=== PATIENT | female | born 2000 | race Hispanic/Latino ===

== ENCOUNTER 2022-05-02 01:54 | Emergency (ER) | payer OTHER ==
[~2022-05-02] VITALS: Ht 152.4 cm; Wt 56.7 kg
[2022-05-02 02:28] LABS: BASOPHILS % (AUTO) 0.5 % (0.0-5.0); EOSINOPHILS % (AUTO) 1.7 % (0.0-8.0); HEMATOCRIT 37.7 % (36-48); LYMPHOCYTES % (AUTO) 23.1 % (21.0-51.0); MEAN CORPUSCULAR HEMOGLOBIN 26.7 pg (27.0-33.0); MEAN CORPUSCULAR HGB CONC 32.9 g/dL (32.0-36.0); MEAN CORPUSCULAR VOLUME 81.3 fL (79-99); NEUTROPHILS % (AUTO) 68.3 % (40.0-77.0); PLATELET COUNT (AUTO) 248 K/uL (130-400); RED BLOOD CELL COUNT(AUTO) 4.64 MIL/uL (4.00-5.50); RED CELL DISTRIBUTION WIDTH 13.5 % (11.0-15.5)
[2022-05-02 03:35] LABS: APPEARANCE,URINE CLEAR (CLEAR); BILIRUBIN,URINE NEGATIVE (NEGATIVE); COLOR,URINE LIGHT-YELLOW (YELLOW); GLUCOSE, URINE (UA) NEGATIVE (NEGATIVE); KETONES,URINE 60 mg/dL (NEGATIVE); LEUKOCYTE ESTERASE ,URINE 250 Leu/uL (NEGATIVE); NITRATE,URINE NEGATIVE (NEGATIVE); OCCULT BLOOD,URINE LARGE (NEGATIVE); PH,URINE 6.5 (5.0-8.0); PROTEIN,URINE NEGATIVE (NEGATIVE); UROBILINOGEN,URINE 0.2 mg/dL (0.2-1.0)
[2022-05-02 03:54] LABS: MUCUS,URINE RARE LPF (None Seen); OTHER CASTS, URINE 1 /LPF (None Seen); SQUAMOUS EPITHELIAL CELL,UR RARE /HPF (0-2)
[2022-05-02] MEDS ORDERED: PREN1CAP37 PO (04:22)
[2022-05-02] MEDS ORDERED: CEPH500B PO (04:22)
[2022-05-02] MEDS ORDERED: CEPHALEXIN 500 MG CAPSULE PO ONE (04:30)
[2022-05-02 04:49] VITALS: BP 116/62
== END 2022-05-02 04:53 | disposition home or self-care (01) ==
LOC: EDH 01:54
DX: O20.0 Threatened abortion (principal); O23.11 Infections of bladder in pregnancy, first trimester; N30.00 Acute cystitis without hematuria; Z3A.08 8 weeks gestation of pregnancy
CPT/HCPCS: 36415; 76801; 81001; 84702; 85025; 86900; 86901; 87088

== ENCOUNTER 2022-05-02 21:31 | Emergency (ER) | payer OTHER ==
[~2022-05-02 21:31] MED LIST: CEPH500B PO; PREN1CAP37 PO
== END 2022-05-02 21:44 | disposition left against medical advice (07) ==
LOC: EDH 21:31
DX: O20.8 Other hemorrhage in early pregnancy (principal); Z3A.00 Weeks of gestation of pregnancy not specified; Z53.21 Procedure and treatment not carried out due to patient leaving prior to being seen by health care provider

== ENCOUNTER 2022-08-13 13:54 | Observation (INO) | payer MEDICAID, OTHER ==
[~2022-08-13] VITALS: Ht 157.5 cm; Wt 55.3 kg
[2022-08-13 14:11] VITALS: BP 135/82
[2022-08-13 14:42] LABS: APPEARANCE,URINE CLOUDY (CLEAR); BILIRUBIN,URINE NEGATIVE (NEGATIVE); COLOR,URINE YELLOW (YELLOW); GLUCOSE, URINE (UA) NEGATIVE (NEGATIVE); KETONES,URINE NEGATIVE (NEGATIVE); LEUKOCYTE ESTERASE ,URINE 500 Leu/uL (NEGATIVE); NITRATE,URINE NEGATIVE (NEGATIVE); OCCULT BLOOD,URINE NEGATIVE (NEGATIVE); PH,URINE 7.5 (5.0-8.0); PROTEIN,URINE 20 mg/dL (NEGATIVE); UROBILINOGEN,URINE 0.2 mg/dL (0.2-1.0)
[2022-08-13 14:48] LABS: AMPHET/METH SCREEN,URINE NEGATIVE (NEGATIVE); BARBITURATE SCREEN, URINE NEGATIVE (NEGATIVE); BENZODIAZEPINES SCREEN,URINE NEGATIVE (NEGATIVE); CANNABINOID SCREEN,URINE NEGATIVE (NEGATIVE); COCAINE SCREEN,URINE NEGATIVE (NEGATIVE); OPIATE SCREEN,URINE NEGATIVE (NEGATIVE); PHENCYCLIDINE SCREEN,URINE NEGATIVE (NEGATIVE)
[2022-08-13 14:59] LABS: BACTERIA,URINE FEW /HPF (None Seen); MUCUS,URINE RARE LPF (None Seen); OTHER CASTS, URINE 3 /LPF (None Seen); SQUAMOUS EPITHELIAL CELL,UR MOD /HPF (0-2); YEAST,URINE BUDDING MOD /HPF (None Seen)
== END 2022-08-13 15:43 | disposition home or self-care (01) ==
LOC: EDH 13:54 → LDH 13:55
PROVIDERS: ADMIT Internal Medicine; ATTEND Internal Medicine
DX: O26.892 Other specified pregnancy related conditions, second trimester (principal); R10.30 Lower abdominal pain, unspecified; Z3A.22 22 weeks gestation of pregnancy; Z79.899 Other long term (current) drug therapy
CPT/HCPCS: 59025; 80305; 87088; 81001; G0378; G0379

== ENCOUNTER 2023-11-08 12:54 | Inpatient (IN) | payer MEDICAID ==
[~2023-11-08] VITALS: Ht 157.5 cm; Wt 68.5 kg
[2023-11-08] MEDS ORDERED: LACTATED RINGERS 1000ML 1,000 ML IV SCH (13:30)
[2023-11-08 13:42] LABS: APPEARANCE,URINE CLEAR (CLEAR); BILIRUBIN,URINE NEGATIVE (NEGATIVE); COLOR,URINE LIGHT-YELLOW (YELLOW); GLUCOSE, URINE (UA) NEGATIVE (NEGATIVE); KETONES,URINE NEGATIVE (NEGATIVE); LEUKOCYTE ESTERASE ,URINE NEGATIVE Leu/uL (NEGATIVE); NITRATE,URINE NEGATIVE (NEGATIVE); OCCULT BLOOD,URINE NEGATIVE (NEGATIVE); PROTEIN,URINE NEGATIVE (NEGATIVE); UROBILINOGEN,URINE 0.2 mg/dL (0.2-1.0)
[2023-11-08 13:43] LABS: ADD UA MICROSCOPIC NO
[2023-11-08 13:43] LABS: HEMATOCRIT 32.7 % (36-48); MEAN CORPUSCULAR HEMOGLOBIN 22.9 pg (27.0-33.0); MEAN CORPUSCULAR HGB CONC 30.6 g/dL (32.0-36.0); MEAN CORPUSCULAR VOLUME 74.8 fL (79-99); PLATELET COUNT (AUTO) 236 K/uL (130-400); RED BLOOD CELL COUNT(AUTO) 4.37 MIL/uL (4.00-5.50); RED CELL DISTRIBUTION WIDTH 18.4 % (11.0-15.5); WHITE BLOOD COUNT (AUTO) 11.3 K/uL (4.8-10.8)
[2023-11-08] MEDS ORDERED: LACTATED RINGERS 1000ML 1,000 ML IV PRN (14:00)
[2023-11-08 14:25] LABS: HIV 1&2 ANTIBODY Non-Reactive (Negative); HIV-1 p24 Antigen Non-Reactive (Negative)
[2023-11-08] MEDS ORDERED: ROPIVACAINE 0.2% 2MG/ML 100ML VIAL EP SCH (14:30)
[2023-11-08] MEDS ORDERED: NALOXONE HCL 0.4 MG/1 ML ML IV PRN (14:30)
[2023-11-08] MEDS ORDERED: LACTATED RINGERS 500 ML 500 ML IV PRN (14:30)
[2023-11-08] MEDS ORDERED: EPHEDRINE SULFATE 50 MG/ML AMPULE IVP PRN (14:30)
[2023-11-08 14:40] LABS: AMPHET/METH SCREEN,URINE NEGATIVE (NEGATIVE); BARBITURATE SCREEN, URINE NEGATIVE (NEGATIVE); BENZODIAZEPINES SCREEN,URINE NEGATIVE (NEGATIVE); CANNABINOID SCREEN,URINE NEGATIVE (NEGATIVE); COCAINE SCREEN,URINE NEGATIVE (NEGATIVE); OPIATE SCREEN,URINE NEGATIVE (NEGATIVE); PHENCYCLIDINE SCREEN,URINE NEGATIVE (NEGATIVE)
[2023-11-08] MEDS: MEPERIDINE-PF 50 MG/ML SYG IVP PRN (14:48)
[2023-11-08] MEDS: PROMETHAZINE HCL 25 MG/ML 1ML AMPULE IM PRN (14:48)
[2023-11-08] MEDS ORDERED: LIDOCAINE HCL 1% 20 ML VIAL ONE (17:48)
[2023-11-08] MEDS: OXYTOCIN-LR 30 UNITS/500ML 500 ML IV SCH (18:24)
[2023-11-08] MEDS ORDERED: LANOLIN 30GM OINTMENT TP PRN (18:30)
[2023-11-08] MEDS ORDERED: ACETAMINOPHEN 325 MG TAB PO PRN (18:30)
[2023-11-08] MEDS ORDERED: ACETAMINOPHEN WITH CODEINE 1 TAB TAB PO PRN (18:30)
[2023-11-08 20:25] VITALS: BP 122/71; PULSE 77; RESP 18
[2023-11-08] MEDS: IBUPROFEN 600 MG TABLET PO PRN (20:41)
[2023-11-08] MEDS: DOCUSATE SODIUM 100 MG CAP PO SCH (20:42)
[2023-11-08] MEDS: BENZOCAINE/LANOLIN/ALOE VERA 60 ML AEROSOL TP PRN (20:42)
[2023-11-08] MEDS: WITCH HAZEL 1 PAD TP PRN (20:42)
[2023-11-08 23:56] VITALS: BP 128/74; PULSE 72; RESP 20
[2023-11-09 03:56] VITALS: BP 108/63; PULSE 66; RESP 18
[2023-11-09 06:46] LABS: HEMATOCRIT 27.9 % (36-48); MEAN CORPUSCULAR HEMOGLOBIN 22.5 pg (27.0-33.0); MEAN CORPUSCULAR HGB CONC 30.1 g/dL (32.0-36.0); MEAN CORPUSCULAR VOLUME 74.6 fL (79-99); RED BLOOD CELL COUNT(AUTO) 3.74 MIL/uL (4.00-5.50); RED CELL DISTRIBUTION WIDTH 18.3 % (11.0-15.5); WHITE BLOOD COUNT (AUTO) 10.8 K/uL (4.8-10.8)
[2023-11-09 07:13] VITALS: BP 95/47; PULSE 77; RESP 18
[2023-11-09 12:16] VITALS: BP 130/84; PULSE 79; RESP 18
[2023-11-09 13:43] LABS: RAPID PLASMA REAGIN NONREACTIVE (NONREACTIVE)
[2023-11-09] MEDS ORDERED: IBUP-2070 PO (14:42)
== END 2023-11-09 16:55 | disposition home or self-care (01) | DRG 560 ==
LOC: EDH 12:54 → OBSVTOIN 13:12 → LDH 13:12 → WSH 20:25
PROVIDERS: ADMIT Obstetrics & Gynecology; ATTEND Obstetrics & Gynecology
PROC: 10E0XZZ Delivery of Products of Conception, External Approach (ICD-10-PCS; principal; 2023-11-08)
PROC: 0KQM0ZZ Repair Perineum Muscle, Open Approach (ICD-10-PCS; 2023-11-08)
PROC: 10907ZC Drainage of Amniotic Fluid, Therapeutic from Products of Conception, Via Natural or Artificial Opening (ICD-10-PCS; 2023-11-08)
DX: O70.1 Second degree perineal laceration during delivery (principal); Z37.0 Single live birth; Z3A.39 39 weeks gestation of pregnancy
CPT/HCPCS: 36415; 80305; 81003; 85027; 86592; 86701; 86850; 86900; 86901; 87340; 87390; A4351; G0378; J2175; J2550; J2795

== ENCOUNTER 2024-09-15 19:38 | Emergency (ER) | payer MEDICAID ==
[~2024-09-15] VITALS: Ht 160 cm; Wt 68.0 kg
[~2024-09-15 19:38] MED LIST changes: -CEPH500B PO; +IBUP-2070 PO
--- NOTE | 2024-09-15 19:56 | ERN ---
ED Note History of Present Illness Stated Complaint: SEVERE UPPER STOMACH PAIN/ABDOMEN Chief Complaint: Abdominal Pain Time Seen by MD: 19:40 Time Seen by Midlevel: 19:40 Dictation: The patient is a 24-year-old female with a past medical history who presents to the emergency department with complaints of epigastric abdominal pain associated with nausea onset prior to arrival. Patient reports she has been having these episodes for about two days on and off. Reports pain as burning sensation. Denies any fevers, diarrhea. Reports last bowel movement today. Allergies: Coded Allergies: No Known Drug Allergies (Unverified Allergy, Unknown, 05/02/22) Home Meds Active Scripts 93/Iron/Folate 9/Dha (Westgel Dha Softgel) 1 Each Capsule, 1 EACH PO DAILY, #30 CAP 0 Refills Prov:RYANN WALLIS MD 05/02/22 Reported Medications Ibuprofen (Ibuprofen) 600 Mg Tablet, 600 MG PO Q6H PRN for PAIN, TAB 11/09/23 Past Medical History Past Medical History: No Pertinent History Surgical History: None LMP: Sep 11, 2024 : 2 Para: 1 Aborts: 0 RN Note Reviewed/Agreed w/PFSH: Yes Review of System Dictation Constitutional: Negative for fever,chills, and weight loss Eyes: Negative for injury, pain,redness, and discharge ENT: Negative for injury,pain or swelling Cardiovascular: Negative for chest pain, palpitations, and edema Respiratory: Negative for shortness of breath, cough, and wheezing, Abdomen/GI: Negative for vomiting, diarrhea, and constipation positive for abdominal pain, nausea Back: Negative for injury and pain : Negative for injury, bleeding and discharge MS/Extremity: Negative for injury and deformity Skin: Negative for rash, and discoloration Neuro: Negative for headache, weakness, numbness, tingling, and seizure Psych: Negative for suicide ideation, homicidal ideation, and hallucinations Initial Vital Sign VS Vital Signs Date Time Temp Pulse Resp B/P (MAP) Pulse Ox O2 Delivery O2 Flow Rate FiO2 09/15/24 19:46 98.4 105 18 137/79 98 Room Air 0 09/15/24 20:03 21 Physical Exam Dictation Vital Signs reviewed General Appearance: Alert, oriented x 3, no acute distress, well developed, nourished. Head and Face: non-traumatic. Eyes: PERRL, pink conjunctivas, eyelid no trauma, anterior chamber with arcus senilis. Ears: Pinnas intact and no signs of trauma or erythema ear canals clear and no discharge TM no erythema Nose: No discharge, no bleeding. Oropharynx: Mouth normal, tongue pink. pharynx clear,no erythema, tonsils no exudates, no abscesses noted, mucous membrane moist Neck: Supple, non-tender, no thyromegaly, no masses, no JVD, no bruits Breast:Deferred Chest:No tenderness, no crepitus, no paradoxical movement, no retractions Lungs:Clear, well-ventilated, symmetric, no rales, no wheezing, no rhonchi, no stridor, good breath sounds bilaterally Heart: Regular rate, regular rhythm, no murmur, no gallops Vascular: no peripheral edema, Abdomen: Soft, positive bowel sounds, nondistended, no guarding, nontender, no rebound, no masses no hepatomegaly, no splenomegaly, no Vogt's sign, no hernias. Rectal: Deferred Genital: Deferred Neurological: Normal speech, motor function intact, sensory function intact Musculoskeletal: Neck nontender, full range of motion, back nontender, full range of motion, Extremities: nontender, full range of motion Skin: Color pink, dry, no turgor, no rash, no lacerations, no abrasions, no contusions. Lymphatic: Deferred Results (Laboratory/Radiology) Laboratory/Radiology Laboratory Tests Test 09/15/24 19:49 09/15/24 19:59 Urine Color COLORLESS (YELLOW) Urine Appearance CLEAR (CLEAR) Urine pH 7.0 (5.0-8.0) Urine Specific [place] 1.021 (1.001-1.031) Urine Protein NEGATIVE mg/dL (NEGATIVE) Urine Glucose (UA) NEGATIVE mg/dL (NEGATIVE) Urine Ketones NEGATIVE mg/dL (NEGATIVE) Urine Occult Blood SMALL (NEGATIVE) H Urine Nitrate NEGATIVE (NEGATIVE) Urine Bilirubin NEGATIVE mg/dL (NEGATIVE) Urine Urobilinogen 0.2 mg/dL (0.2-1.0) Urine Leukocyte Esterase NEGATIVE [place]cedez/uL Urine RBC 2-5 /HPF (0-1) H Urine WBC 2-5 /HPF (0-1) H Urine Squamous Epithelial Cells MOD /HPF (0-2) Urine Bacteria None /HPF (None Seen) Urine HCG, Qualitative NEGATIVE (NEGATIVE) White Blood Count 8.7 K/uL (4.8-10.8) Red Blood Count 5.00 MIL/uL (4.00-5.50) Hemoglobin 13.4 g/dL (12.0-16.0) Hematocrit 41.7 % (36-48) Mean Corpuscular Volume 83.4 fL (79-99) Mean Corpuscular Hemoglobin 26.8 pg (27.0-33.0) L Mean Corpuscular Hemoglobin Concent 32.1 g/dL (32.0-36.0) Red Cell Distribution Width 13.6 % (11.0-15.5) Platelet Count 268 K/uL (130-400) Mean Platelet Volume 12.1 fL (7.5-10.5) H Immature Granulocyte % (Auto) 0.3 % (0-1) Neutrophils (%) (Auto) 61.2 % (40.0-77.0) Lymphocytes (%) (Auto) 30.9 % (21.0-51.0) Monocytes (%) (Auto) 5.0 % (3.0-13.0) Eosinophils (%) (Auto) 1.7 % (0.0-8.0) Basophils (%) (Auto) 0.9 % (0.0-5.0) Neutrophils # (Auto) 5.3 K/uL (1.8-7.7) Lymphocytes # (Auto) 2.7 K/uL (1.0-4.8) Monocytes # (Auto) 0.4 K/uL (0.1-1.0) Eosinophils # (Auto) 0.15 K/uL (0.00-0.70) Basophils # (Auto) 0.08 K/uL (0.00-0.20) Absolute Immature Granulocyte (auto 0.03 K/uL (0-1) Nucleated Red Blood Cells 0.0 % (0.0-0.19) Sodium Level 139 mmol/L (136-145) Potassium Level 3.9 mmol/L (3.5-5.1) Chloride Level 105 mmol/L (101-111) Carbon Dioxide Level 24 mmol/L (21-32) Blood Urea Nitrogen 24 mg/dL (7-18) H Creatinine 0.9 mg/dL (0.5-1.0) Glomerular Filtration Rate Calc 92 mL/min (>90) Random Glucose 126 mg/dL (70-105) H Total Calcium 8.7 mg/dL (8.5-10.1) Total Bilirubin 0.4 mg/dL (0.2-1.0) Aspartate Amino Transf (AST/SGOT) 14 U/L (10-37) Alanine Aminotransferase (ALT/SGPT) 21 U/L (12-78) Alkaline Phosphatase 93 U/L (50-136) Total Protein 7.5 g/dL (6.0-8.3) Albumin 4.2 g/dL (3.5-5.0) Amylase Level 33 U/L (25-115) Lipase 63 U/L (16-77) Labs Reviewed?: Yes ED Course ED Course Orders Procedure Category Date Status Time Vital Signs Per CPOE 09/15/24 Transmitted Routine 19:45 Saline Lock Iv CPOE 09/15/24 Transmitted 19:45 Cbc With Differential LAB 09/15/24 Complete 19:45 Comprehensive LAB 09/15/24 Complete Metabolic Panel 19:45 Lipase LAB 09/15/24 Complete 19:45 Amylase LAB 09/15/24 Complete 19:45 Urinalysis Profile LAB 09/15/24 Complete 19:45 ,Urine Test LAB 09/15/24 Complete 19:45 0.9%Nacl 1000ml (Ns PHA 09/15/24 Complete 1000ml) 20:00 Morphine 2mg Syg PHA 09/15/24 Complete (Morphine 2mg Syg) 20:00 Ondansetron 4mg Inj PHA 09/15/24 Complete (Zofran 4mg Inj) 20:00 Pantoprazole 40mg Inj PHA 09/15/24 Complete (Protonix 40mg Inj 20:00 Current Medications Medications (Trade) Dose Ordered Sig/Nathan Route PRN Reason Start Time Stop Time Status Last Admin Dose Admin Morphine Sulfate (morPHINE 2MG SYG) 2 mg ONCE ONCE IVP 09/15/24 20:00 09/15/24 20:01 DC Ondansetron HCl (zoFRAN 4MG INJ) 4 mg ONCE ONCE IVP 09/15/24 20:00 09/15/24 20:01 DC 09/15/24 20:14 Pantoprazole Sodium (PROTonix 40MG INJ) 40 mg ONCE ONCE IVP 09/15/24 20:00 09/15/24 20:01 DC 09/15/24 20:14 Sodium Chloride 1,000 ml @ 0 mls/hr ONCE ONCE IV 09/15/24 20:00 09/15/24 20:01 DC 09/15/24 20:13 Vital Signs Date Time Temp Pulse Resp B/P (MAP) Pulse Ox O2 Delivery O2 Flow Rate FiO2 09/15/24 20:27 98.2 77 17 128/70 100 Room Air* 0 21 09/15/24 20:03 98.2 113 22 138/71 100 Room Air* 0 21 09/15/24 19:46 98.4 105 18 137/79 98 Room Air 0 Medical Decision Making MDM The patient is a 24-year-old female with a past medical history who presents to the emergency department with complaints of epigastric abdominal pain associated with nausea onset prior to arrival. Patient reports she has been having these episodes for about two days on and off. Reports pain as burning sensation. Denies any fevers, diarrhea. Reports last bowel movement today. CBC showed no leukocytosis, no anemia, chemistry showed no electrolyte imbalance, negative lipase, normal liver enzymes, urinalysis unremarkable patient reported complete relief of abdominal pain after medication treatment. Patient with no tenderness to palpation, no right upper quadrant tenderness, negative Vogt sign. Patient in no acute distress, patient will be discharged to follow up with PCP. Differential diagnosis: Gastritis, gastroenteritis, pancreatitis, electrolyte imbalance Need for hospitalization: Patient does not meet criteria for hospitalization. There are no social concerns with this patient. DX & DISP Disposition: Discharge Departure Impression: Primary Impression: Gastritis Additional Impression: Abdominal pain Condition: Stable Scripts Famotidine (Pepcid) 20 Mg Tablet 1 TAB PO BID for 30 Days, #60 TAB 0 Refills Prov: GAVIN HOOKS WELDING TECHNICIAN 09/15/24 Additional Instructions: Your labs were unremarkable. Please avoid any foods that exacerbate your symptoms. Avoid laying flat right after eating. Take medication as prescribed. If symptoms worsen please return to ER. FOLLOW-UP WITH PRIMARY CARE PROVIDER IN 1 TO 2 DAYS. TAKE MEDICATIONS DIRECTED HERE IN THE EMERGENCY ROOM. OKAY TO CONTINUE HOME MEDICATIONS UNLESS OTHERWISE DISCUSSED DURING YOUR VISIT IN THE EMERGENCY ROOM TODAY. RETURN TO YOUR NEAREST EMERGENCY ROOM IF SYMPTOMS WORSEN OR IF THERE IS NO IMPROVEMENT. CALL 911 IF YOU NEED IMMEDIATE ASSISTANCE. TAKE TYLENOL OR MOTRIN [id number] NEEDED AND IF NO CONTRAINDICATIONS ARE PRESENT. INCREASE ORAL HYDRATION. A WOUND CULTURE OR URINE CULTURE WAS ORDERED HERE IN THE EMERGENCY ROOM DEPARTMENT PLEASE FOLLOW-UP WITH PRIMARY CARE PROVIDER AND ADVISE THEM TO GET REPEAT PORTS FROM OUR FACILITY. IF YOU HAD ANY ELLIE WRAP/SPLINTS THAT WERE APPLIED HERE, PLEASE DO NOT REMOVE THEM UNTIL YOU SEE YOUR PRIMARY CARE OR SPECIALTY. Referrals: YULIA ZAPIEN MD (PCP) Time of Disposition: 20:44 I have reviewed the case, and I agree with, Diagnosis and Plan GAVIN HOOKS [facility] Sep 15, 2024 19:56
--- NOTE | 2024-09-15 20:00 | NUR ---
PT CARE ASSUMED AT THIS TIME
[2024-09-15 20:09] LABS: BASOPHILS # (AUTO) 0.08 K/uL (0.00-0.20); BASOPHILS % (AUTO) 0.9 % (0.0-5.0); EOSINOPHILS # (AUTO) 0.15 K/uL (0.00-0.70); EOSINOPHILS % (AUTO) 1.7 % (0.0-8.0); HEMATOCRIT 41.7 % (36-48); IMMATURE GRANULOCYTE ABSOLUTE 0.03 K/uL (0-1); LYMPHOCYTES # (AUTO) 2.7 K/uL (1.0-4.8); LYMPHOCYTES % (AUTO) 30.9 % (21.0-51.0); MEAN CORPUSCULAR HEMOGLOBIN 26.8 pg (27.0-33.0); MEAN CORPUSCULAR HGB CONC 32.1 g/dL (32.0-36.0); MEAN CORPUSCULAR VOLUME 83.4 fL (79-99); MONOCYTES # (AUTO) 0.4 K/uL (0.1-1.0); NEUTROPHILS # (AUTO) 5.3 K/uL (1.8-7.7); NEUTROPHILS % (AUTO) 61.2 % (40.0-77.0); PLATELET COUNT (AUTO) 268 K/uL (130-400); RED CELL DISTRIBUTION WIDTH 13.6 % (11.0-15.5); WHITE BLOOD COUNT (AUTO) 8.7 K/uL (4.8-10.8)
[2024-09-15] MEDS: 0.9%NACL 1000ML 1,000 ML IV ONE (20:13)
[2024-09-15 20:14] LABS: APPEARANCE,URINE CLEAR (CLEAR); BILIRUBIN,URINE NEGATIVE (NEGATIVE); COLOR,URINE COLORLESS (YELLOW); GLUCOSE, URINE (UA) NEGATIVE (NEGATIVE); KETONES,URINE NEGATIVE (NEGATIVE); LEUKOCYTE ESTERASE ,URINE NEGATIVE Leu/uL (NEGATIVE); NITRATE,URINE NEGATIVE (NEGATIVE); OCCULT BLOOD,URINE SMALL (NEGATIVE); PROTEIN,URINE NEGATIVE (NEGATIVE); UROBILINOGEN,URINE 0.2 mg/dL (0.2-1.0)
[2024-09-15] MEDS: ondanSETRON 4MG INJ IVP ONE (20:14)
[2024-09-15] MEDS: PANTOPrazole 40 MG/VIAL IVP ONE (20:14)
[2024-09-15 20:17] LABS: ADD UA MICROSCOPIC YES
[2024-09-15 20:21] LABS: CREATININE 0.9 mg/dL (0.5-1.0); POTASSIUM 3.9 mmol/L (3.5-5.1)
[2024-09-15 20:22] LABS: HCG,QUALITATIVE URINE NEGATIVE (NEGATIVE)
[2024-09-15 20:24] LABS: MUCUS,URINE RARE LPF (None Seen); SQUAMOUS EPITHELIAL CELL,UR MOD /HPF (0-2)
[2024-09-15 20:25] LABS: ALBUMIN 4.2 g/dL (3.5-5.0); BILIRUBIN,TOTAL 0.4 mg/dL (0.2-1.0); TOTAL PROTEIN, SERUM 7.5 g/dL (6.0-8.3)
[2024-09-15] MEDS ORDERED: FAMO-136 PO (20:46)
[2024-09-15] MEDS: morPHINE 2 MG SYG IVP ONE (21:02)
[2024-09-15 21:17] VITALS: BP 126/69; PULSE 80; RESP 16; TEMP 98; O2SAT 100
== END 2024-09-15 21:18 | disposition home or self-care (01) ==
LOC: EDH 19:38
DX: K29.70 Gastritis, unspecified, without bleeding (principal); R10.13 Epigastric pain; Z79.899 Other long term (current) drug therapy
CPT/HCPCS: 99285; 96374; 96361; 96375; 82150; 80053; 83690; 85025; 81001; 81025; 36415; J7030; J2405; J2470; J2270

== ENCOUNTER 2024-09-17 20:53 | Emergency (ER) | payer MEDICAID ==
[~2024-09-17] VITALS: Ht 160 cm; Wt 68.0 kg
[~2024-09-17 20:53] MED LIST changes: +FAMO-136 PO
[2024-09-17] MEDS: MAG/ALUM/SIMETH 30 ML UDCUP PO ONE (22:36)
[2024-09-17] MEDS: DICYCLOMINE HCL 10 MG/5 ML ML PO ONE (22:36)
[2024-09-17] MEDS: LIDOCAINE HCL 2% VISCOUS 15 ML UDCUP PO ONE (22:36)
[2024-09-17] MEDS: ondanSETRON 4MG INJ IVP ONE (22:36)
[2024-09-17] MEDS: LACTATED RINGERS 1000ML IV STA (23:26)
[2024-09-17] MEDS: PANTOPrazole 40 MG/VIAL IVP ONE (23:27)
--- NOTE | 2024-09-17 23:59 | NUR ---
PT STILL PENDING LABS AND TEST RESULTS
[2024-09-18 00:06] LABS: BASOPHILS # (AUTO) 0.05 K/uL (0.00-0.20); BASOPHILS % (AUTO) 0.6 % (0.0-5.0); EOSINOPHILS # (AUTO) 0.04 K/uL (0.00-0.70); EOSINOPHILS % (AUTO) 0.5 % (0.0-8.0); HEMATOCRIT 37.5 % (36-48); IMMATURE GRANULOCYTE ABSOLUTE 0.04 K/uL (0-1); LYMPHOCYTES # (AUTO) 1.3 K/uL (1.0-4.8); LYMPHOCYTES % (AUTO) 16.2 % (21.0-51.0); MEAN CORPUSCULAR HEMOGLOBIN 26.9 pg (27.0-33.0); MEAN CORPUSCULAR HGB CONC 32.5 g/dL (32.0-36.0); MEAN CORPUSCULAR VOLUME 82.8 fL (79-99); MONOCYTES # (AUTO) 0.5 K/uL (0.1-1.0); MONOCYTES % (AUTO) 5.6 % (3.0-13.0); NEUTROPHILS # (AUTO) 6.3 K/uL (1.8-7.7); NEUTROPHILS % (AUTO) 76.6 % (40.0-77.0); PLATELET COUNT (AUTO) 244 K/uL (130-400); RED BLOOD CELL COUNT(AUTO) 4.53 MIL/uL (4.00-5.50); RED CELL DISTRIBUTION WIDTH 13.7 % (11.0-15.5); WHITE BLOOD COUNT (AUTO) 8.2 K/uL (4.8-10.8)
[2024-09-18 00:37] LABS: APPEARANCE,URINE CLEAR (CLEAR); BILIRUBIN,URINE NEGATIVE (NEGATIVE); COLOR,URINE YELLOW (YELLOW); GLUCOSE, URINE (UA) NEGATIVE (NEGATIVE); KETONES,URINE 40 mg/dL (NEGATIVE); LEUKOCYTE ESTERASE ,URINE NEGATIVE Leu/uL (NEGATIVE); NITRATE,URINE NEGATIVE (NEGATIVE); OCCULT BLOOD,URINE NEGATIVE (NEGATIVE); PROTEIN,URINE NEGATIVE (NEGATIVE)
[2024-09-18 00:51] LABS: ADD UA MICROSCOPIC YES
[2024-09-18 00:52] LABS: BACTERIA,URINE FEW /HPF (None Seen); MUCUS,URINE RARE LPF (None Seen); RBC,URINE 0-1 /HPF (0-1); SQUAMOUS EPITHELIAL CELL,UR RARE /HPF (0-2)
[2024-09-18 00:54] LABS: HCG,QUALITATIVE URINE NEGATIVE (NEGATIVE)
[2024-09-18 01:16] LABS: CREATININE 0.8 mg/dL (0.5-1.0); POTASSIUM 3.6 mmol/L (3.5-5.1)
--- NOTE | 2024-09-18 01:19 | ERN ---
General Chief Complaint: Abdominal Pain Stated Complaint: EPIGASTRIC PAIN Time Seen by MD: 20:57 Source: patient History of Present Illness Initial Comments Patient states that whenever she eats she immediately feels like she needs to defecate and then after that she lately gets a burning pain in her subxiphoid region. She has tried Zantac and it has not helped. Today she tried Pepto- Bismol it did not help. She comes in to figure out the cause of her pain. Timing/Duration: 24 hours Allergies: Coded Allergies: No Known Drug Allergies (Unverified Allergy, Unknown, 05/02/22) Home Meds Active Scripts Famotidine (Pepcid) 20 Mg Tablet, 1 TAB PO BID for 30 Days, #60 TAB 0 Refills Prov:GAVIN HOOKS PATIENT MANAGER 09/15/24 93/Iron/Folate 9/Dha (Westgel Dha Softgel) 1 Each Capsule, 1 EACH PO DAILY, #30 CAP 0 Refills Prov:RYANN WALLIS MD 05/02/22 Reported Medications Ibuprofen (Ibuprofen) 600 Mg Tablet, 600 MG PO Q6H PRN for PAIN, TAB 11/09/23 Past Medical History Past Medical History: Other Medical History Other: GASTRITIS Past Surgical History: None Female( History) LMP: Sep 11, 2024 : 2 Para: 1 Aborts: 0 Constitutional: (-) chills, (-) diaphoresis, (-) fever, (-) malaise, (-) weakness, (-) other documentation EENTM: (-) eye pain, (-) blurred vision, (-) tearing, (-) double vision, (-) ear pain, (-) ear discharge, (-) nose pain, (-) nose congestion, (-) throat pain, (-) Throat swelling, (-) mouth pain, (-) tooth pain, (-) mouth swelling, (-) other documentation Respiratory: (-) cough, (-) orthopnea, (-) short of breath, (-) stridor, (-) wheezing, (-) other documentation Cardiovascular: (-) chest pain, (-) edema, (-) palpitations, (-) syncope, (-) dyspnea on exertion, (-) other documentation Gastrointestinal/Abdominal: (-) nausea, (-) vomiting, (-) diarrhea, (-) abdominal pain, (-) abdominal distention, (-) constipation, (-) rectal bleeding, (-) dark stool/melena, (-) other documentation Genitourinary: (-) vaginal discharge, (-) vaginal bleeding, (-) dysuria, (-) frequency, (-) hematuria, (-) pain, (-) other documentation Physical Exam General Appearance: (+) mild distress Orientation: (+) alert, (+) oriented x 3 Eye: bilateral eye normal inspection, bilateral eye PERRL, bilateral eye EOMI Ear, Nose, Throat: (+) hearing grossly normal, (+) normal ENT inspection Neck: (+) normal inspection, (+) supple Respiratory: (+) chest non-tender, (+) lungs clear Heart: (+) regular, (+) no gallop Vascular: (+) no edema Gastrointestinal: (+) soft, (+) non-tender, (+) bowel sound present Results Laboratory and Microbiology Lab and Micro Result Laboratory Tests Test 09/17/24 23:44 09/18/24 00:30 09/18/24 01:04 White Blood Count 8.2 K/uL (4.8-10.8) Red Blood Count 4.53 MIL/uL (4.00-5.50) Hemoglobin 12.2 g/dL (12.0-16.0) Hematocrit 37.5 % (36-48) Mean Corpuscular Volume 82.8 fL (79-99) Mean Corpuscular Hemoglobin 26.9 pg (27.0-33.0) L Mean Corpuscular Hemoglobin Concent 32.5 g/dL (32.0-36.0) Red Cell Distribution Width 13.7 % (11.0-15.5) Platelet Count 244 K/uL (130-400) Mean Platelet Volume 13.0 fL (7.5-10.5) H Immature Granulocyte % (Auto) 0.5 % (0-1) Neutrophils (%) (Auto) 76.6 % (40.0-77.0) Lymphocytes (%) (Auto) 16.2 % (21.0-51.0) L Monocytes (%) (Auto) 5.6 % (3.0-13.0) Eosinophils (%) (Auto) 0.5 % (0.0-8.0) Basophils (%) (Auto) 0.6 % (0.0-5.0) Neutrophils # (Auto) 6.3 K/uL (1.8-7.7) Lymphocytes # (Auto) 1.3 K/uL (1.0-4.8) Monocytes # (Auto) 0.5 K/uL (0.1-1.0) Eosinophils # (Auto) 0.04 K/uL (0.00-0.70) Basophils # (Auto) 0.05 K/uL (0.00-0.20) Absolute Immature Granulocyte (auto 0.04 K/uL (0-1) Nucleated Red Blood Cells 0.0 % (0.0-0.19) Urine Color YELLOW (YELLOW) Urine Appearance CLEAR (CLEAR) Urine pH 7.0 (5.0-8.0) Urine Specific [place] 1.012 (1.001-1.031) Urine Protein NEGATIVE mg/dL (NEGATIVE) Urine Glucose (UA) NEGATIVE mg/dL (NEGATIVE) Urine Ketones 40 mg/dL (NEGATIVE) H Urine Occult Blood NEGATIVE (NEGATIVE) Urine Nitrate NEGATIVE (NEGATIVE) Urine Bilirubin NEGATIVE mg/dL (NEGATIVE) Urine Urobilinogen 4.0 mg/dL (0.2-1.0) H Urine Leukocyte Esterase NEGATIVE [place]cedez/uL Urine RBC 0-1 /HPF (0-1) Urine WBC 2-5 /HPF (0-1) H Urine Squamous Epithelial Cells RARE /HPF (0-2) Urine Bacteria FEW /HPF (None Seen) Urine HCG, Qualitative NEGATIVE (NEGATIVE) Sodium Level 139 mmol/L (136-145) Potassium Level 3.6 mmol/L (3.5-5.1) Chloride Level 108 mmol/L (101-111) Carbon Dioxide Level 25 mmol/L (21-32) Blood Urea Nitrogen 15 mg/dL (7-18) Creatinine 0.8 mg/dL (0.5-1.0) Glomerular Filtration Rate Calc 105 mL/min (>90) Random Glucose 93 mg/dL (70-105) Total Calcium 8.8 mg/dL (8.5-10.1) MDM Patient has a history of gastritis and was given medications for it proximally two days ago. With the pain is recalcitrant to the effects of the antacids. I gave her a GI cocktail and that did not relieve the pain so I am ordered a full set of labs and a CT abdomen pelvis with and without contrast. The description of the patient's pain as burning after defecating after eating could be a hiatal hernia. Patient said that she did get some relief with the medicine in the IV fluids. I can not tell if it was the IV pantoprazole or the fluids. Patient's CT scan does not really show a hiatal hernia. Or evidence of gastritis. CBC is normal chemistry panel is normal urine is normal. I think the patient has gastritis maybe a H pylori infection. I counseled her on the various antacid medications that are out there and that the proton pump inhibitors are probably the most effective. CT scan does not show a hiatal hernia unfortunately. ED Course Orders Procedure Category Date Status Time Ondansetron 4mg Inj PHA 09/17/24 Complete (Zofran 4mg Inj) 22:00 Lidocaine Hcl 2% PHA 09/17/24 Complete Viscous (Lidocaine Hcl 22:00 Mag/Alum/Simeth 30ml PHA 09/17/24 Complete (Maalox Plus 30ml) 22:00 Dicyclomine Hcl PHA 09/17/24 Complete (Bentyl 10mg/5ml 22:00 Basic Metabolic Panel LAB 09/17/24 Complete 23:02 Urinalysis Profile LAB 09/17/24 Complete 23:02 Cbc With Differential LAB 09/17/24 Complete 23:02 ,Urine Test LAB 09/17/24 Complete 23:02 Lactated Ringers PHA 09/17/24 Complete 1000ml (Lactated 23:07 Pantoprazole 40mg Inj PHA 09/17/24 Complete (Protonix 40mg Inj 23:30 Iohexol (Omnipaque) PHA 09/18/24 Complete 01:27 Ct Abdomen/Pelvis CT 09/18/24 Taken W/Wo Contras 01:35 Current Medications Medications (Trade) Dose Ordered Sig/Nathan Route PRN Reason Start Time Stop Time Status Last Admin Dose Admin Al Hydroxide/Mg Hydroxide (MAALox PLUS 30ML) 30 ml ONCE ONCE PO 09/17/24 22:00 09/17/24 22:01 DC 09/17/24 22:36 Dicyclomine HCl (Bentyl 10mg/5ml Syrup) 10 mg ONCE ONCE PO 09/17/24 22:00 09/17/24 22:01 DC 09/17/24 22:36 Iohexol (Omnipaque) 75 ml STK-MED ONCE IV 09/18/24 01:27 09/18/24 01:28 DC Lactated Ringer's (Lactated Ringers 1000ml) 1,000 ml BOLUS STAT IV 09/17/24 23:07 09/17/24 23:12 DC 09/17/24 23:26 Lidocaine HCl (Lidocaine HCl 2% Viscous) 10 ml ONCE ONCE PO 09/17/24 22:00 09/17/24 22:01 DC 09/17/24 22:36 Ondansetron HCl (zoFRAN 4MG INJ) 4 mg ONCE ONCE IVP 09/17/24 22:00 09/17/24 22:01 DC 09/17/24 22:36 Pantoprazole Sodium (PROTonix 40MG INJ) 40 mg ONCE ONCE IVP 09/17/24 23:30 09/17/24 23:31 DC 09/17/24 23:27 Vital Signs Date Time Temp Pulse Resp B/P (MAP) Pulse Ox O2 Delivery O2 Flow Rate FiO2 09/18/24 01:37 99 19 129/69 99 Room Air* 0 21 09/17/24 23:04 98.6 99 19 137/75 99 Room Air* 0 21 09/17/24 20:55 97.9 98 18 138/71 99 Room Air 0 DX & DISP Disposition: Discharge Departure Impression: Primary Impression: Gastritis Condition: Stable Additional Instructions: You may have an extremely small hiatal hernia or you may have an H pylori infection. You certainly have symptoms of a gastritis from acid production. I recommend you go to your primary care physician and be tested for Helicobacter pylori back to her infection. I will give you a prescription for some proton pump inhibitors that we will be stronger than the medicines you have taken so far to relieve your gastritis. You may need to see a GI specialist. Referrals: SELF,REFERRAL (PCP) ZACK STUBBS MD Sep 18, 2024 01:19
[2024-09-18] MEDS ORDERED: IOHEXOL-350 75 ML VIAL IV ONE (01:27)
[2024-09-18] MEDS ORDERED: PANT40GR PO (02:21)
[2024-09-18 02:27] VITALS: BP 131/72; PULSE 97; RESP 18; TEMP 98.3; O2SAT 99
--- NOTE | 2024-09-18 08:14 | HMCIMG ---
Exam Type: CT ABDOMEN/PELVIS W/WO CONTRAS Clinical Information: abd pain, hiatal hernia Comparison: None Contrast: 100 cc's Isovue 370 IV, no complications or adverse reactions CT Dose Index (CTDI): 31.60 mGy Dose Length Product (DLP): 1740.80 total mGy-cm Findings: No evidence of nephro or ureterolithiasis is found. No hydronephrosis or ureteral dilatation is seen. The lung bases are clear. The stomach is unremarkable. It shows no wall thickening. No gross ulceration is seen. It is not overly distended. There are no surrounding inflammatory changes. No wall lesions are identified to suggest cancer. The spleen is unremarkable. It is not enlarged. The pancreas shows normal anatomy. It is not fatty replaced. It shows no lesions. The pancreatic duct is not dilated. The gallbladder is unremarkable. It shows no cholelithiasis. The gallbladder wall is normal in thickness. There is no pericholecystic fluid. The is no acute or chronic inflammation noted. The adrenal glands are unremarkable. There is no enlargement. No lesions are noted. The liver is unremarkable. It shows no focal masses. The appendix is unremarkable. It shows no evidence of inflammation. No appendicolith is seen. The small bowel is unremarkable. There is no evidence of dilatation to suggest obstruction. No evidence of adynamic ileus is seen. There is no small bowel wall thickening to suggest enteritis. The colon is unremarkable. The urinary bladder is unremarkable. There is no wall thickening to suggest tumor or inflammation. There are no intraluminal calculi. There are no diverticula. There is no evidence of chronic bladder outlet obstruction. There is no evidence of urinary bladder distention to suggest urinary retention. The other pelvic structures are unremarkable. The bony and vascular structures are unremarkable for the patient's age. IMPRESSION: NEGATIVE CT SCAN OF THE ABDOMEN AND PELVIS WITH ORAL AND IV CONTRAST. This study was performed using dose reduction techniques to include automated exposure control and/or adjustment of the mA and/or kV according to patient size.
== END 2024-09-18 02:28 | disposition home or self-care (01) ==
LOC: EDH 20:53
DX: K29.70 Gastritis, unspecified, without bleeding (principal)
CPT/HCPCS: 99285; 96374; 96375; 80048; 85025; 81001; 81025; 36415; 74178; J2405; J2470; Q9967

== ENCOUNTER 2024-11-25 21:37 | Inpatient (IN) | payer SELFPAY ==
[~2024-11-25] VITALS: Ht 160 cm; Wt 59.1 kg
[~2024-11-25 21:37] MED LIST changes: +IBUP-1492 PO; -IBUP-2070 PO; +PANT40GR PO
--- NOTE | 2024-11-25 21:40 | NUR ---
UA CUP PROVIDED
--- NOTE | 2024-11-25 21:59 | ERN ---
ED Note History of Present Illness Stated Complaint: ABD PAIN Chief Complaint: Abdominal Pain Time Seen by MD: 21:39 Time Seen by Midlevel: 21:39 Dictation: The patient is a 24-year-old female with a history of gallstones who presents to the emergency department with complaints of epigastric and right upper abdominal pain onset an hour prior to arrival. Patient reports she was seen here a month ago and was told she had gallstones but has not follow up with General surgery because she is waiting on her insurance. Patient otherwise denies any nausea or vomiting, diarrhea or fevers. Patient reports that pain is subsiding. Allergies: Coded Allergies: No Known Drug Allergies (Unverified Allergy, Unknown, 05/02/22) Home Meds Active Scripts Pantoprazole Sodium (Pantoprazole Sodium) 40 Mg Granpkt.dr, 40 MG PO DAILY PRN for GERD for 30 Days, #30 PACK Prov:ZACK STUBBS MD 09/18/24 Famotidine (Pepcid) 20 Mg Tablet, 1 TAB PO BID for 30 Days, #60 TAB 0 Refills Prov:GAVIN HOOKS DIRECTOR OF OUTREACH 09/15/24 93/Iron/Folate 9/Dha (Westgel Dha Softgel) 1 Each Capsule, 1 EACH PO DAILY, #30 CAP 0 Refills Prov:RYANN WALLIS MD 05/02/22 Reported Medications Ibuprofen (Ibuprofen) 600 Mg Tablet, 600 MG PO Q6H PRN for PAIN, TAB 11/09/23 Past Medical History Past Medical History: Other Additional Past Medical Hx: GASTRITIS, GALLSTONES Surgical History: None LMP: Nov 15, 2024 : 2 Para: 1 Aborts: 0 RN Note Reviewed/Agreed w/PFSH: Yes Review of System Dictation Constitutional: Negative for fever,chills, and weight loss Eyes: Negative for injury, pain,redness, and discharge ENT: Negative for injury,pain or swelling Cardiovascular: Negative for chest pain, palpitations, and edema Respiratory: Negative for shortness of breath, cough, and wheezing, Abdomen/GI: Negative for nausea, vomiting, diarrhea, and constipation positive for abdominal pain Back: Negative for injury and pain : Negative for injury, bleeding and discharge MS/Extremity: Negative for injury and deformity Skin: Negative for rash, and discoloration Neuro: Negative for headache, weakness, numbness, tingling, and seizure Psych: Negative for suicide ideation, homicidal ideation, and hallucinations Initial Vital Sign VS Vital Signs Date Time Temp Pulse Resp B/P (MAP) Pulse Ox O2 Delivery O2 Flow Rate FiO2 11/25/24 21:38 97.5 99 20 111/75 99 Room Air 11/25/24 22:05 0 21 Physical Exam Dictation Vital Signs reviewed General Appearance: Alert, oriented x 3, no acute distress, well developed, nourished. Head and Face: non-traumatic. Eyes: PERRL, pink conjunctivas, eyelid no trauma, anterior chamber with arcus senilis. Ears: Pinnas intact and no signs of trauma or erythema ear canals clear and no discharge TM no erythema Nose: No discharge, no bleeding. Oropharynx: Mouth normal, tongue pink. pharynx clear,no erythema, tonsils no exudates, no abscesses noted, mucous membrane moist Neck: Supple, non-tender, no thyromegaly, no masses, no JVD, no bruits Breast:Deferred Chest:No tenderness, no crepitus, no paradoxical movement, no retractions Lungs:Clear, well-ventilated, symmetric, no rales, no wheezing, no rhonchi, no stridor, good breath sounds bilaterally Heart: Regular rate, regular rhythm, no murmur, no gallops Vascular: no peripheral edema, Abdomen: Soft, positive bowel sounds, nondistended, no guarding, nontender, no rebound, no masses no hepatomegaly, no splenomegaly, no Vogt's sign, no hernias. Rectal: Deferred Genital: Deferred Neurological: Normal speech, motor function intact, sensory function intact Musculoskeletal: Neck nontender, full range of motion, back nontender, full range of motion, Extremities: nontender, full range of motion Skin: Color pink, dry, no turgor, no rash, no lacerations, no abrasions, no contusions. Lymphatic: Deferred Results (Laboratory/Radiology) Laboratory/Radiology Laboratory Tests Test 11/25/24 21:53 11/25/24 21:57 White Blood Count 7.4 K/uL (4.8-10.8) Red Blood Count 5.36 MIL/uL (4.00-5.50) Hemoglobin 14.2 g/dL (12.0-16.0) Hematocrit 43.0 % (36-48) Mean Corpuscular Volume 80.2 fL (79-99) Mean Corpuscular Hemoglobin 26.5 pg (27.0-33.0) L Mean Corpuscular Hemoglobin Concent 33.0 g/dL (32.0-36.0) Red Cell Distribution Width 13.5 % (11.0-15.5) Platelet Count 254 K/uL (130-400) Mean Platelet Volume 12.9 fL (7.5-10.5) H Immature Granulocyte % (Auto) 0.4 % (0-1) Neutrophils (%) (Auto) 59.0 % (40.0-77.0) Lymphocytes (%) (Auto) 28.6 % (21.0-51.0) Monocytes (%) (Auto) 7.0 % (3.0-13.0) Eosinophils (%) (Auto) 3.8 % (0.0-8.0) Basophils (%) (Auto) 1.2 % (0.0-5.0) Neutrophils # (Auto) 4.4 K/uL (1.8-7.7) Lymphocytes # (Auto) 2.1 K/uL (1.0-4.8) Monocytes # (Auto) 0.5 K/uL (0.1-1.0) Eosinophils # (Auto) 0.28 K/uL (0.00-0.70) Basophils # (Auto) 0.09 K/uL (0.00-0.20) Absolute Immature Granulocyte (auto 0.03 K/uL (0-1) Nucleated Red Blood Cells 0.0 % (0.0-0.19) Sodium Level 141 mmol/L (136-145) Potassium Level 3.4 mmol/L (3.5-5.1) L Chloride Level 102 mmol/L (101-111) Carbon Dioxide Level 29 mmol/L (21-32) Blood Urea Nitrogen 19 mg/dL (7-18) H Creatinine 0.7 mg/dL (0.5-1.0) Glomerular Filtration Rate Calc 124 mL/min (>90) Random Glucose 79 mg/dL (70-105) Total Calcium 9.2 mg/dL (8.5-10.1) Total Bilirubin 0.5 mg/dL (0.2-1.0) Direct Bilirubin 0.1 mg/dL (0.0-0.3) Aspartate Amino Transf (AST/SGOT) 24 U/L (10-37) Alanine Aminotransferase (ALT/SGPT) 24 U/L (12-78) Alkaline Phosphatase 73 U/L (50-136) Total Protein 7.4 g/dL (6.0-8.3) Albumin 4.3 g/dL (3.5-5.0) Lipase 54 U/L (16-77) Urine Color COLORLESS (YELLOW) Urine Appearance CLEAR (CLEAR) Urine pH 8.0 (5.0-8.0) Urine Specific [place] 1.004 (1.001-1.031) Urine Protein NEGATIVE mg/dL (NEGATIVE) Urine Glucose (UA) NEGATIVE mg/dL (NEGATIVE) Urine Ketones NEGATIVE mg/dL (NEGATIVE) Urine Occult Blood NEGATIVE (NEGATIVE) Urine Nitrate NEGATIVE (NEGATIVE) Urine Bilirubin NEGATIVE mg/dL (NEGATIVE) Urine Urobilinogen 0.2 mg/dL (0.2-1.0) Urine Leukocyte Esterase 25 [place]/uL (NEGATIVE) H Urine RBC 2-5 /HPF (0-1) H Urine WBC 2-5 /HPF (0-1) H Urine Squamous Epithelial Cells MOD /HPF (0-2) Urine Bacteria None /HPF (None Seen) Urine HCG, Qualitative NEGATIVE (NEGATIVE) SERVICE 46 REASON: ruq abd pain ORDERING PHYSICIAN: GAVIN HOOKS PROCEDURE: [id number] - US ABDOMINAL RUQ\LTD EXAM: US Abdomen, Right Upper Quadrant. CLINICAL HISTORY: Right upper quadrant pain. TECHNIQUE: Right upper quadrant sonography performed with image documentation. COMPARISON: None provided. FINDINGS: LIVER: Measures 12.4 cm. Focal fatty infiltration is identified in the left lobe measuring 4.1 ??? 1.9 ??? 3.7 cm. No focal hepatic mass identified. GALLBLADDER: Multiple gallstones present. Gallbladder wall thickness measures 2 mm (within normal limits). COMMON BILE DUCT: Dilated, measuring 7.5 mm. PANCREAS: Within normal limits. RIGHT KIDNEY: Measures 8.2 ??? 3.5 ??? 3.3 cm. Normal renal cortical echogenicity. No renal mass, calculus, or hydronephrosis. IMPRESSION: Cholelithiasis with no acute cholecystitis. Mildly dilated common bile duct. Further evaluation with MRCP is suggested to rule out choledocholithiasis. Focal fatty infiltration in the left hepatic lobe. /[facility] Labs Reviewed?: Yes ED Course ED Course Orders Procedure Category Date Status Time Vital Signs Per CPOE 11/25/24 Transmitted Routine 21:39 Saline Lock Iv CPOE 11/25/24 Transmitted 21:39 Cbc With Differential LAB 11/25/24 Complete 21:39 Lipase LAB 11/25/24 Complete 21:39 Urinalysis Profile LAB 11/25/24 Complete 21:39 Basic Metabolic Panel LAB 11/25/24 Complete 21:39 ,Urine Test LAB 11/25/24 Complete 21:39 Hepatic Function Panel LAB 11/25/24 Complete 21:47 Us Abdominal Ruq\Ltd US 11/25/24 Resulted 21:47 Pantoprazole 40mg Inj PHA 11/25/24 Complete (Protonix 40mg Inj 22:00 Admit Orders ADM 11/25/24 Transmitted 23:52 Mrcp(Abdwo)Cholangiopancreatog MRI 11/25/24 Logged 23:53 Keep Patient Npo CPOE 11/25/24 Verified 23:54 Edm Admit Bridge Order ADM 11/25/24 Verified 23:53 Current Medications Medications (Trade) Dose Ordered Sig/Nathan Route PRN Reason Start Time Stop Time Status Last Admin Dose Admin Pantoprazole Sodium (PROTonix 40MG INJ) 40 mg ONCE ONCE IVP 11/25/24 22:00 11/25/24 22:01 DC 11/25/24 22:01 Vital Signs Date Time Temp Pulse Resp B/P (MAP) Pulse Ox O2 Delivery O2 Flow Rate FiO2 11/25/24 23:30 97.7 91 18 112/71 99 Room Air* 0 21 11/25/24 22:05 97.7 99 18 11/75 99 Room Air* 0 21 11/25/24 21:38 97.5 99 20 111/75 99 Room Air Medical Decision Making MDM MDM: The patient is a 24-year-old female with a history of gallstones who presents to the emergency department with complaints of epigastric and right upper abdominal pain onset an hour prior to arrival. Patient reports she was seen here a month ago and was told she had gallstones but has not follow up with General surgery because she is waiting on her insurance. Patient otherwise denies any nausea or vomiting, diarrhea or fevers. Patient reports that pain is subsiding. CBC showed no leukocytosis, no anemia, chemistry showed mild hypokalemia, negative liver enzymes, negative lipase, ultrasound revealed a dilated CBD, patient will be admitted for further evaluation and management. Differential diagnosis: Gastritis, biliary colic, cholecystitis Comorbidities: Cholelithiasis Tests considered and not ordered secondary to shared decision making include: none Previous outside records reviewed: none Risk of complication and/or morbidity or mortality of patient management: The patient meets criteria for admission. Need for emergency major/minor surgery: No There are no social concerns with this patient. I independently interpreted the tests I ordered (labs, urinalysis, etc.). I discussed the case with the hospitalist for admission. [place] who accepts admission I discussed the case with the following specialists: none. Historian: pateint. I independently interpreted imaging studies and EKGs that I ordered (US, CT, XR, EKG, etc.). External chart review: none. Medical management and examination interpretation discussions were had by me with other qualified healthcare professionals as indicated for the patient's care. DX & DISP Disposition: Inpatient Decision to Admit Date: Nov 25, 2024 Decision to Admit Time: 23:57 Departure Impression: Primary Impression: Cholelithiasis Additional Impressions: Abdominal pain, Biliary colic, Common bile duct dilatation Condition: Stable Referrals: SELF,REFERRAL (PCP) I have reviewed the case, and I agree with, Diagnosis and Plan GAVIN HOOKS Nov 25, 2024 21:59
[2024-11-25 22:05] LABS: IMMATURE GRANULOCYTE ABSOLUTE 0.03 K/uL (0-1); NUCLEATED RED BLOOD CELLS 0.0 % (0.0-0.19); PLATELET COUNT (AUTO) 254 K/uL (130-400); RED BLOOD CELL COUNT(AUTO) 5.36 MIL/uL (4.00-5.50); RED CELL DISTRIBUTION WIDTH 13.5 % (11.0-15.5); WHITE BLOOD COUNT (AUTO) 7.4 K/uL (4.8-10.8)
[2024-11-25 22:15] LABS: APPEARANCE,URINE CLEAR (CLEAR); GLUCOSE, URINE (UA) NEGATIVE (NEGATIVE); LEUKOCYTE ESTERASE ,URINE 25 Leu/uL (NEGATIVE); NITRATE,URINE NEGATIVE (NEGATIVE); OCCULT BLOOD,URINE NEGATIVE (NEGATIVE)
[2024-11-25 22:16] LABS: ADD UA MICROSCOPIC YES
[2024-11-25 22:18] LABS: CREATININE 0.7 mg/dL (0.5-1.0); GLOMERULAR FILTR. RATE CALC 124.0 mL/min (>90); GLUCOSE,RANDOM 79.0 mg/dL (70-105); SODIUM SERUM 141.0 mmol/L (136-145); UREA NITROGEN, BLOOD 19.0 mg/dL (7-18)
[2024-11-25 22:19] LABS: HCG,QUALITATIVE URINE NEGATIVE (NEGATIVE); SQUAMOUS EPITHELIAL CELL,UR MOD /HPF (0-2)
[2024-11-25 22:29] LABS: ASPARTATE AMINOTRANSFERASE 24.0 U/L (10-37); TOTAL PROTEIN, SERUM 7.4 g/dL (6.0-8.3)
--- NOTE | 2024-11-25 22:44 | HMCIMG ---
EXAM: US Abdomen, Right Upper Quadrant. CLINICAL HISTORY: Right upper quadrant pain. TECHNIQUE: Right upper quadrant sonography performed with image documentation. COMPARISON: None provided. FINDINGS: LIVER: Measures 12.4 cm. Focal fatty infiltration is identified in the left lobe measuring 4.1 ??? 1.9 ??? 3.7 cm. No focal hepatic mass identified. GALLBLADDER: Multiple gallstones present. Gallbladder wall thickness measures 2 mm (within normal limits). COMMON BILE DUCT: Dilated, measuring 7.5 mm. PANCREAS: Within normal limits. RIGHT KIDNEY: Measures 8.2 ??? 3.5 ??? 3.3 cm. Normal renal cortical echogenicity. No renal mass, calculus, or hydronephrosis. IMPRESSION: Cholelithiasis with no acute cholecystitis. Mildly dilated common bile duct. Further evaluation with MRCP is suggested to rule out choledocholithiasis. Focal fatty infiltration in the left hepatic lobe. /Bryan
--- NOTE | 2024-11-25 23:30 | NUR ---
PT HAD INITIALLY STATED SHE WOULD NOT BE ABLE TO STAY, STATES SHE UNDERSTANDS THE COMPLICATIONS OF LEAVING AMA BUT FEELS THAT IS BEST OPTION. PT SPOKE TO PROVIDER AT LENGTH ABOUT HER OPTIONS. HOWEVER, AT TIME FORM WAS PROVIDED, PT STATES SHE IS ABLE TO ARRANGE IT SO THAT SHE MAY STAY IN THE HOSPITAL. PROVIDER WAS ADVISED OF CHANGE IN PLANS.
--- NOTE | 2024-11-25 23:53 | HP ---
History of Present Illness Reason for Visit: abdominal pain History of Present Illness Ms. Root is a 24-year-old female that was seen and examined today on 11/25/2024. Patient is a good historian of personal health Patient reports that she came to the emergency department with a chief complaint of abdominal pain. Onset was two months ago. Location is epigastric. Duration is on and off. Character is described as burning. Symptoms are aggravated with eating. There was no alleviating factors. Patient denies any associated nausea and vomiting. Patient reports that she was diagnosed with gallstones one month ago by ultrasound in the emergency department. Today in the emergency department potassium 3.4, abdominal ultrasound again shows cholelithiasis and possibly a mildly dilated common bile duct for which further evaluation with a MRCP was recommended by Radiology. For this reason emergency room physician recommended patient be admitted Past Medical History ADDITIONAL PAST MEDICAL HISTORY: [Preeclampsia] SOCIAL HISTORY: [Negative for smoking, alcohol use, drug use. Patient lives with a boyfriend, Jony Jacinto. Patient is typically independent of her ADLs. Patient denies difficulty paying her bills.] SURGICAL HISTORY: [Denies] Review of Systems General: No Fever, No Chills, No Night Sweats, No Fatigue, No Malaise, No Appetite, No Other HEENT: No Head Aches, No Visual Changes, No Eye Pain, No Ear Pain, No Dysphasia, No Sinus Congestion, No Post Nasal Drip, No Sore Throat, No Other Pulmonary: No Dyspnea, No Cough, No Pleuritic Chest Pain, No Other Cardiovascular: No: Chest Pain, Palpitations, Orthopnea, Paroxysmal Noc. Dyspnea, Edema, Lt Headedness, Other Gastrointestinal: Abdominal Pain; No: Nausea, Vomiting, Diarrhea, Constipation, Melena, Hematochezia, Other Genitourinary: No Dysuria, No Frequency, No Incontinence, No Hematuria, No Retention, No Other Musculoskeletal: No: other, neck pain, shoulder pain, arm pain, back pain, hand pain, leg pain, foot pain Skin: No Urticaria, No Rash, No Other Neurological: No: Weakness, Numbness, Incoordination, Change in speech, Confusion, Seizures, Other Allergies: Coded Allergies: No Known Drug Allergies (Unverified Allergy, Unknown, 05/02/22) No Active Prescriptions or Reported Meds Exam Vital Signs Vital Signs Date Time Temp Pulse Resp B/P (MAP) Pulse Ox O2 Delivery O2 Flow Rate FiO2 11/25/24 23:30 97.7 91 18 112/71 99 Room Air* 0 21 General Appearance: Alert, Oriented X3, Cooperative, No acute distress HEENT: Atraumatic, EOMI, Mucous membr. moist/pink Respiratory: Clear to auscultation, Normal air movement, NL respiratory effort Cardiovascular: Regular rate, Regular rhythm, Normal S1, Normal S2 Abdominal: Normal bowel sounds, Soft, No tenderness Extremities: No edema Skin: No significant lesion Neuro: Normal speech, Strength at 5/5 X4 ext, Sensation intact, Cranial nerves 3-12 NL Psych/Mental Status: Mental status NL, Mood NL, Thoughts/Content NL Assessment/Plan ASSESSMENT: [ Cholelithiasis, POA Hypokalemia, POA] PLAN: [ Admit patient to medical floor as inpatient status. Keep patient NPO. MRCP in a.m.. IV fluid maintenance therapy lactated Ringer's at 75 mL/HR. As needed analgesia with morphine. As-needed antiemetic, Zofran. Replace potassium per hospital protocol. Consider consulting general surgery service or gastroenterology service if indicated after MRCP results. GI prophylaxis, famotidine DVT prophylaxis, Lovenox ADVANCED CARE PLANNING 1. Which of the following were discussed? Hospice Care - Yes Therapeutic options - yes Advance Directives - Yes - patient states she does not have any advance directives in place at this time, however her mother can make decisions for her if she becomes unable. Other discussions - patient wishes to remain a full code at this time 2. Discussed with who? Patient 3. Voluntary nature of this service was explained to the patient? Yes 4. Amount of time spent - ___16 minutes____ 5. Reviewed by Physician? (if this service was performed by NPP) Yes This document was generated in part using voice recognition software, occasional wrong word or sound alike substitutions may have occurred due to the inherent limitations of voice recognition software. Read the chart carefully and recognize using context, where the substitutions have occurred. Although every effort was made to edit the content, balancing machine operator and typing errors may occur ATTESTATION BY PHYSICIAN I have seen and examined the patient. I reviewed the documentation, medical decision making, and treatment plan as noted by the mid-level provider above. I agree with the findings and plan of care. ANAMIKA MALONEY [facility] Nov 25, 2024 23:53
[2024-11-26] VITALS (8 sets, daily range): BP systolic 95–133; BP diastolic 56–75; PULSE 73–86; RESP 16–20; TEMP 97.7–98.4; O2SAT 97–99
[2024-11-26] MEDS: LACTATED RINGERS 1000ML 1,000 ML IV SCH (04:30)
[2024-11-26 06:12] LABS: IMMATURE GRANULOCYTE ABSOLUTE 0.02 K/uL (0-1); NUCLEATED RED BLOOD CELLS 0.0 % (0.0-0.19); PLATELET COUNT (AUTO) 230 K/uL (130-400); RED BLOOD CELL COUNT(AUTO) 4.71 MIL/uL (4.00-5.50); RED CELL DISTRIBUTION WIDTH 13.4 % (11.0-15.5); WHITE BLOOD COUNT (AUTO) 6.3 K/uL (4.8-10.8)
[2024-11-26 06:30] LABS: CREATININE 0.7 mg/dL (0.5-1.0); GLOMERULAR FILTR. RATE CALC 124.0 mL/min (>90); GLUCOSE,RANDOM 84.0 mg/dL (70-105); PHOSPHORUS 3.8 mg/dL (2.5-4.9); SODIUM SERUM 142.0 mmol/L (136-145); UREA NITROGEN, BLOOD 17.0 mg/dL (7-18)
[2024-11-26] MEDS ORDERED: PoTASSium chloRIDE 20MEQ ER 20 MEQ ERTAB PO PRN (07:30)
[2024-11-26] MEDS ORDERED: PoTASSium chl 10% ELIXIR 20MEQ 20 MEQ/15 ML UDCUP PO PRN (07:30)
[2024-11-26] MEDS: FAMOTIDINE 20MG TAB PO SCH (08:50)
[2024-11-26] MEDS: ENOXAPARIN SODIUM 40 MG/0.4 ML SYRINGE SQ SCH (08:52)
--- NOTE | 2024-11-26 11:15 | NUR ---
MET WITH PATIENT AT BEDSIDE FOR DC PLANNING. PT IS INDEPENDENT, LIVES W SPOUSE AND YOUNG CHILDREN, HAS NO DME OR SERVICES. DOESNOT DRIVE- [facility] PROVIDES TRANSPORT. STATES HAD GALL BLADDER ISSUES ONE YEAR AGO BUT IT RESOLVED. STATES THAT SINCE FLARE UP AGAIN IN LAST TWO MONTHS HAS LOST > 25 PDS. , STATES HAS NOT CLIINIC/PCP, LAST OFFICE VISIT WAS WITH DR CURRY FERREIRA FOR [facility] 2 YEARS AGO ENCOURAGED TO SEEK OUT CLINIC. TAMMI SHE HAS CALLED DIFFERENT LOW COST CLIINICS AND THEY ARE NOT ACCEPTING AT THE MOMENT. DISCUSSED [facility] HAS A SHORTER WAITING TIME. INFO GIVEN DCP HOME Addendum: 11/27/24 at 1119 by ASHLEIGH THORNE RN Amended: Links added.
--- NOTE | 2024-11-26 12:02 | CONS ---
GENERAL SURGERY CONSULTATION NOTE Date/Time Patient Seen: [ 11/26/2024 9:30 AM] Requesting Physician: [ Dr. Jordan Cintron] Reason for Consultation: [ Cholelithiasis with possible choledocholithiasis] History of Present Illness: [24-year-old female admitted for complaints of right upper quadrant pain that started yesterday and progressively became worse. Patient was told about 2 months ago that she had gallstones on a different ER visit but was discharged home. Patient states that since then, she has been to the ED about 4-5 times due to gallbladder pain. Yesterday, patient was evaluated in ED, ultrasound shows cholelithiasis with a possible dilated CBD. MRCP has been ordered but is pending to be done. Patient has been NPO since yesterday. WBCs 6.3, H and H12.7 and 30.9, bilirubin 0.5 with normal LFTs. Lipase normal at 54. No previous surgical history. Only medical history of preeclampsia with 1st ] Past Medical History: [ ] Past Surgical History: [ ] Family History: [ ] Social History: [ ] Habits: [Never] smoker. [Denies] alcohol consumption. [Denies] illicit drug use Current Medications Medications (Trade) Dose Ordered Sig/Nathan Route Start Time Stop Time Status Last Admin Dose Admin Ceftriaxone Sodium (ROCEphine 1G INJ) 1 gm Q24H IVPB 11/26/24 11:30 12/06/24 11:29 11/26/24 11:47 1 GM Enoxaparin Sodium (Lovenox) 40 mg DAILY SQ 11/26/24 09:00 12/26/24 08:59 11/26/24 08:52 40 MG Famotidine (Pepcid 20mg Tab) 20 mg DAILY PO 11/26/24 09:00 12/26/24 08:59 Lactated Ringer's 1,000 ml @ 75 mls/hr [id number] IV 11/26/24 03:30 12/26/24 03:29 11/26/24 04:30 75 MLS/HR Review of Systems: CONST: [No fever, fatigue, or weight changes.] EYES: [No recent vision problems.] ENT: [No congestion, ear pain, or sore throat.] C/V: [No chest pain, palpitations, or edema.] RESP: [No cough, congestion, wheezing or shortness of breath.] GI: [+ abdominal pain,no nausea, vomiting, constipation, or diarrhea.] : [No dysuria.] SKIN: [No rash.] NEURO: [No headache, focal numbness or weakness.] Physical Examination: GENERAL: [No acute distress, female, comfortably resting in bed.] HEAD: [Normocephalic.] EYES: [Nonicteric sclera bilaterally.] ENT: [Hearing grossly intact.] NECK: [Supple.] LUNGS: [Clear breath sounds bilaterally.] HEART: [Normal rate and rhythm.] VASC: [Peripheral pulses +2 bilaterally.] ABD: [Bowel sounds normal, soft, nontender, no organomegaly.] : [No CVA tenderness] EXT: [No edema.] SKIN: [No rashes or lesions noted.] NEURO: [Awake, alert, and oriented x3. No focal sensory or strength deficits noted.] Vital Signs (last 8hr) Date Time Temp Pulse Resp B/P (MAP) Pulse Ox O2 Delivery O2 Flow Rate FiO2 11/26/24 08:00 98.1 75 19 95/56 98 Room Air 11/26/24 07:49 97 Room Air* 0 21 Laboratory: [ ] Hematology Labs: Test 11/26/24 06:05 Range/Units White Blood Count 6.3 4.8-10.8 K/uL Red Blood Count 4.71 4.00-5.50 MIL/uL Hemoglobin 12.7 12.0-16.0 g/dL Hematocrit 38.9 36-48 % Mean Corpuscular Volume 82.6 79-99 fL Mean Corpuscular Hemoglobin 27.0 27.0-33.0 pg Mean Corpuscular Hemoglobin Concent 32.6 32.0-36.0 g/dL Red Cell Distribution Width 13.4 11.0-15.5 % Platelet Count 230 130-400 K/uL Mean Platelet Volume 12.9 H 7.5-10.5 fL Immature Granulocyte % (Auto) 0.3 0-1 % Neutrophils (%) (Auto) 66.4 40.0-77.0 % Lymphocytes (%) (Auto) 20.6 L 21.0-51.0 % Monocytes (%) (Auto) 9.1 3.0-13.0 % Eosinophils (%) (Auto) 2.2 0.0-8.0 % Basophils (%) (Auto) 1.4 0.0-5.0 % Neutrophils # (Auto) 4.2 1.8-7.7 K/uL Lymphocytes # (Auto) 1.3 1.0-4.8 K/uL Monocytes # (Auto) 0.6 0.1-1.0 K/uL Eosinophils # (Auto) 0.14 0.00-0.70 K/uL Basophils # (Auto) 0.09 0.00-0.20 K/uL Absolute Immature Granulocyte (auto 0.02 0-1 K/uL Nucleated Red Blood Cells 0.0 0.0-0.19 % Chemistry Labs: Test 11/26/24 06:05 11/25/24 21:53 Range/Units Sodium Level 142 136-145 mmol/L Potassium Level 3.8 3.5-5.1 mmol/L Chloride Level 103 101-111 mmol/L Carbon Dioxide Level 26 21-32 mmol/L Blood Urea Nitrogen 17 7-18 mg/dL Creatinine 0.7 0.5-1.0 mg/dL Glomerular Filtration Rate Calc 124 >90 mL/min Random Glucose 84 70-105 mg/dL Total Calcium 8.5 8.5-10.1 mg/dL Phosphorus Level 3.8 2.5-4.9 mg/dL Magnesium Level 1.80 1.80-2.40 mg/dL C-Reactive Protein, Quantitative 2.10 0.5-3.0 mg/L Procalcitonin < 0.05 L 0.05-0.5 ng/mL Total Bilirubin 0.5 0.2-1.0 mg/dL Direct Bilirubin 0.1 0.0-0.3 mg/dL Aspartate Amino Transf (AST/SGOT) 24 10-37 U/L Alanine Aminotransferase (ALT/SGPT) 24 12-78 U/L Alkaline Phosphatase 73 50-136 U/L Total Protein 7.4 6.0-8.3 g/dL Albumin 4.3 3.5-5.0 g/dL Lipase 54 16-77 U/L Diagnostics / Radiology: [Copy/Paste Echos/Imaging Report here] Assessment: [ Cholelithiasis with possible choledocholithiasis] Plan: [At this time, patient is pain-free with current medications given Keep patient NPO until MRCP is completed, then may start on clear liquids If MRCP is positive, patient will be needing GI consult for ERCP Continue with IV fluids and IV antibiotics Repeat labs in a.m. No emergent surgical intervention at this time Dr. Moreno updated on patient's status] ATTESTATION BY PHYSICIAN I have seen and examined the patient. I reviewed the documentation, medical decision making, and treatment plan as noted by the mid-level provider above. I agree with the findings and plan of care. MD BIN SEXTON LETICIA A [employer] CONS[employer] Nov 26, 2024 12:02
--- NOTE | 2024-11-26 14:59 | PN ---
[facility] PROGRESS NOTE Date of Service: Nov 26, 2024 Time of Service: 14:44 SUBJECTIVE: Ms. Root is a 24-year-old female that was seen and examined today on 11/25/2024. Patient is a good historian of personal health Patient reports that she came to the emergency department with a chief complaint of abdominal pain. Onset was two months ago. Location is epigastric. Duration is on and off. Character is described as burning. Symptoms are aggravated with eating. There was no alleviating factors. Patient denies any associated nausea and vomiting. Patient reports that she was diagnosed with gallstones one month ago by ultrasound in the emergency department. Today in the emergency department potassium 3.4, abdominal ultrasound again shows cholelithiasis and po ssibly a mildly dilated common bile duct for which further evaluation with a MRCP was recommended by Radiology. For this reason emergency room physician recommended patient be admitted 11/26/2024 - patient seen at bedside in room 308. Patient is not in any acute distress, informed that the pain relieved . Discussed with the patient regarding the course of hospitalization to obtain further imaging and to go forward with the surgery in case of any positive findings. General surgery and gastroenterology has been consulted on the case, patient is currently NPO and started on LR at 75 mL/hour, Rocephin. Patient is currently hemodynamically stable. We will follow the patient closely REVIEW OF SYSTEMS CONSTITUTIONAL: Denies fevers, chills, or night sweats. No unintentional weight loss reported. CARDIOVASCULAR: Denies any exertional angina, dyspnea on exertion, orthopnea, paroxysmal nocturnal dyspnea, palpitations, life-threatening arrhythmias, claudication. PULMONARY: Denies any shortness of breath, cough, phlegm/sputum, hemoptysis, pleuritic chest pain. GASTROINTESTINAL: Denies any type of dysphagia to either liquids or solids. Denies nausea, vomiting, pyrosis, early satiety, abdominal pain, diarrhea, constipation, or changes in stool consistency or caliber. Denies coffee-ground emesis, hematemesis, hematochezia, or melanotic stools. Mild right upper quadrant discomfort GENITOURINARY: Denies frequency, urgency, nocturia, hematuria or incontinence (Storage/Irritative symptoms.) Low urinary stream, straining to void, urinary intermittency or hesitancy, splitting of the voiding stream, terminal dribbling. PHYSICAL EXAM GENERAL APPEARANCE: The patient is awake, alert, and oriented, in no acute cardiopulmonary distress. CARDIOVASCULAR: Regular. S1 and S2 normal. No appreciable rubs, murmurs or gallops. ABDOMEN: Soft, nontender, and nondistended. There is no rebound, voluntary guarding, or rigidity. : Deferred. No Tavares. EXTREMITIES: Non-edematous and not cyanotic. No clubbing. Good capillary refill. SKIN: No skin breakdown. Vital Signs (last 8hr) Date Time Temp Pulse Resp B/P (MAP) Pulse Ox O2 Delivery O2 Flow Rate FiO2 11/26/24 12:00 97.9 78 18 119/70 100 Room Air 11/26/24 08:00 98.1 75 19 95/56 98 Room Air 11/26/24 07:49 97 Room Air* 0 21 LABS: Laboratory: Test 11/26/24 06:05 11/25/24 21:57 11/25/24 21:53 Range/Units White Blood Count 6.3 4.8-10.8 K/uL Red Blood Count 4.71 4.00-5.50 MIL/uL Hemoglobin 12.7 12.0-16.0 g/dL Hematocrit 38.9 36-48 % Mean Corpuscular Volume 82.6 79-99 fL Mean Corpuscular Hemoglobin 27.0 27.0-33.0 pg Mean Corpuscular Hemoglobin Concent 32.6 32.0-36.0 g/dL Red Cell Distribution Width 13.4 11.0-15.5 % Platelet Count 230 130-400 K/uL Mean Platelet Volume 12.9 H 7.5-10.5 fL Immature Granulocyte % (Auto) 0.3 0-1 % Neutrophils (%) (Auto) 66.4 40.0-77.0 % Lymphocytes (%) (Auto) 20.6 L 21.0-51.0 % Monocytes (%) (Auto) 9.1 3.0-13.0 % Eosinophils (%) (Auto) 2.2 0.0-8.0 % Basophils (%) (Auto) 1.4 0.0-5.0 % Neutrophils # (Auto) 4.2 1.8-7.7 K/uL Lymphocytes # (Auto) 1.3 1.0-4.8 K/uL Monocytes # (Auto) 0.6 0.1-1.0 K/uL Eosinophils # (Auto) 0.14 0.00-0.70 K/uL Basophils # (Auto) 0.09 0.00-0.20 K/uL Absolute Immature Granulocyte (auto 0.02 0-1 K/uL Nucleated Red Blood Cells 0.0 0.0-0.19 % Sodium Level 142 136-145 mmol/L Potassium Level 3.8 3.5-5.1 mmol/L Chloride Level 103 101-111 mmol/L Carbon Dioxide Level 26 21-32 mmol/L Blood Urea Nitrogen 17 7-18 mg/dL Creatinine 0.7 0.5-1.0 mg/dL Glomerular Filtration Rate Calc 124 >90 mL/min Random Glucose 84 70-105 mg/dL Total Calcium 8.5 8.5-10.1 mg/dL Phosphorus Level 3.8 2.5-4.9 mg/dL Magnesium Level 1.80 1.80-2.40 mg/dL C-Reactive Protein, Quantitative 2.10 0.5-3.0 mg/L Procalcitonin < 0.05 L 0.05-0.5 ng/mL Urine Color COLORLESS YELLOW Urine Appearance CLEAR CLEAR Urine pH 8.0 5.0-8.0 Urine Specific [place] 1.004 1.001-1.031 Urine Protein NEGATIVE NEGATIVE mg/dL Urine Glucose (UA) NEGATIVE NEGATIVE mg/dL Urine Ketones NEGATIVE NEGATIVE mg/dL Urine Occult Blood NEGATIVE NEGATIVE Urine Nitrate NEGATIVE NEGATIVE Urine Bilirubin NEGATIVE NEGATIVE mg/dL Urine Urobilinogen 0.2 0.2-1.0 mg/dL Urine Leukocyte Esterase 25 H NEGATIVE [place]/uL Urine RBC 2-5 H 0-1 /HPF Urine WBC 2-5 H 0-1 /HPF Urine Squamous Epithelial Cells MOD 0-2 /HPF Urine Bacteria None None Seen /HPF Urine HCG, Qualitative NEGATIVE NEGATIVE Total Bilirubin 0.5 0.2-1.0 mg/dL Direct Bilirubin 0.1 0.0-0.3 mg/dL Aspartate Amino Transf (AST/SGOT) 24 10-37 U/L Alanine Aminotransferase (ALT/SGPT) 24 12-78 U/L Alkaline Phosphatase 73 50-136 U/L Total Protein 7.4 6.0-8.3 g/dL Albumin 4.3 3.5-5.0 g/dL Lipase 54 16-77 U/L Current Medications Medications (Trade) Dose Ordered Sig/Nathan Route PRN Reason Start Time Stop Time Status Last Admin Dose Admin Acetaminophen (TYLenol 325MG TAB) 650 mg Q6H PRN PO TEMPERATURE GREATER THAN 101.5 11/26/24 03:30 12/26/24 03:29 Ceftriaxone Sodium (ROCEphine 1G INJ) 1 gm Q24H IVPB 11/26/24 11:30 12/06/24 11:29 11/26/24 11:47 1 GM Enoxaparin Sodium (Lovenox) 40 mg DAILY SQ 11/26/24 09:00 12/26/24 08:59 11/26/24 08:52 40 MG Famotidine (Pepcid 20mg Tab) 20 mg DAILY PO 11/26/24 09:00 12/26/24 08:59 Hydralazine HCl (APRESOLine 20MG INJ) 10 mg Q6H PRN IV For:SBP above 160;DBP above 90 11/26/24 03:30 12/26/24 03:29 Lactated Ringer's 1,000 ml @ 75 mls/hr [id number] IV 11/26/24 03:30 12/26/24 03:29 11/26/24 04:30 75 MLS/HR Magnesium Sulfate 50 ml @ 0 mls/hr PROTOCOL PRN IV MAGNESIUM PROTOCOL 11/26/24 07:30 12/26/24 07:29 Morphine Sulfate (morPHINE 4MG SYG) 4 mg Q4H PRN IVP SEVERE PAIN (7-10) 11/26/24 03:30 12/03/24 03:29 11/26/24 04:14 4 MG Ondansetron HCl (zoFRAN 4MG INJ) 4 mg Q6H PRN IV NAUSEA/VOMITING 11/26/24 03:30 12/26/24 03:29 11/26/24 04:14 4 MG Potassium Chloride 100 ml @ 50 mls/hr AD PRN IV POTASSIUM PROTOCOL 11/26/24 07:30 12/26/24 07:29 Potassium Chloride 100 ml @ 100 mls/hr AD PRN IV POTASSIUM PROTOCOL 11/26/24 07:30 12/26/24 07:29 Potassium Chloride (K-Dur/Klor-Con 20meq) 20 meq AD PRN PO POTASSIUM PROTOCOL 11/26/24 07:30 12/26/24 07:29 Potassium Chloride (KCl 10% Elixir 20meq/15ml) 20 meq AD PRN PO POTASSIUM PROTOCOL 11/26/24 07:30 12/26/24 07:29 DIAGNOSTICS / RADIOLOGY: PATIENT: MAROCS ROOT MR#: [id number] : 2000 SEX: F AGE: 24 LOCATION: [facility] ORDER 47 STATUS: REG ER REPORT#: [id number] SERVICE 46 REASON: ruq abd pain ORDERING PHYSICIAN: GAVIN HOOKS [employer]HICLE [employer]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 CLINICAL HISTORY: Right upper quadrant pain. TECHNIQUE: Right upper quadrant sonography performed with image documentation. COMPARISON: None provided. FINDINGS: LIVER: Measures 12.4 cm. Focal fatty infiltration is identified in the left lobe measuring 4.1 ??? 1.9 ??? 3.7 cm. No focal hepatic mass identified. GALLBLADDER: Multiple gallstones present. Gallbladder wall thickness measures 2 mm (within normal limits). COMMON BILE DUCT: Dilated, measuring 7.5 mm. PANCREAS: Within normal limits. RIGHT KIDNEY: Measures 8.2 ??? 3.5 ??? 3.3 cm. Normal renal cortical echogenicity. No renal mass, calculus, or hydronephrosis. IMPRESSION: Cholelithiasis with no acute cholecystitis. Mildly dilated common bile duct. Further evaluation with MRCP is suggested to rule out choledocholithiasis. Focal fatty infiltration in the left hepatic lobe. /[place] DICTATED BY: SANDEEP BECKHAM Jr., MD DATE: 11/25/242342 ELECTRONICALLY SIGNED BY: SANDEEP BECKHAM Jr., MD DATE: 11/25/242342 ASSESSMENT: Cholelithiasis, POA Possible choledocholithiasis Fatty liver Hypokalemia, POA resolved Asymptomatic bacteriuria POA Dehydration POA PLAN: Keep patient NPO. Cholelithiasis, possible choledocholithiasis, dehydration MRCP in a.m.. IV fluid maintenance therapy lactated Ringer's at 75 mL/HR. As needed analgesia with morphine. We will follow up with HIDA scan patient is started on Rocephin As-needed antiemetic, Zofran. Replace potassium per hospital protocol. consulted general surgery Consulted gastroenterology GI prophylaxis, famotidine DVT prophylaxis, Lovenox Patient course of hospitalization depending on HIDA scan result, MRCP result, clinical response ATTESTATION BY PHYSICIAN I have seen and examined the patient. I reviewed the documentation, medical decision making, and treatment plan as noted by the resident provider above. I agree with the findings and plan of care. Chau Kurtz MD, KEERTI K MD Nov 26, 2024 14:59
[2024-11-26] MEDS: MAGNESIUM 2GM PREMIX 50ML 50 ML IV PRN (15:10)
--- NOTE | 2024-11-26 17:37 | NUR ---
RAD NUCLEAR MEDICINE PATIENT WAS NOT NPO EXAM ON HOLD UNTIL TOMORROW MORNING NURSE JEY MADE AWARE.
[2024-11-27] VITALS: BP 130/64; PULSE 69; RESP 20; TEMP 98.4
[2024-11-27 04:00] VITALS: BP 118/72; PULSE 74; RESP 20; TEMP 97.9
[2024-11-27 05:09] LABS: IMMATURE GRANULOCYTE ABSOLUTE 0.02 K/uL (0-1); NUCLEATED RED BLOOD CELLS 0.0 % (0.0-0.19); PLATELET COUNT (AUTO) 238 K/uL (130-400); RED BLOOD CELL COUNT(AUTO) 4.72 MIL/uL (4.00-5.50); RED CELL DISTRIBUTION WIDTH 13.4 % (11.0-15.5); WHITE BLOOD COUNT (AUTO) 5.5 K/uL (4.8-10.8)
[2024-11-27 05:21] LABS: ASPARTATE AMINOTRANSFERASE 56.0 U/L (10-37); CREATININE 0.6 mg/dL (0.5-1.0); GLOMERULAR FILTR. RATE CALC 128.0 mL/min (>90); GLUCOSE,RANDOM 74.0 mg/dL (70-105); SODIUM SERUM 139.0 mmol/L (136-145); TOTAL PROTEIN, SERUM 6.3 g/dL (6.0-8.3); UREA NITROGEN, BLOOD 11.0 mg/dL (7-18)
[2024-11-27 08:00] VITALS: BP 110/61; PULSE 68; RESP 18; TEMP 97.9
[2024-11-27 08:08] VITALS: O2SAT 96
--- NOTE | 2024-11-27 09:49 | PN ---
[facility] PROGRESS NOTE Date of Service: Nov 27, 2024 Time of Service: 09:43 SUBJECTIVE: Ms. Root is a 24-year-old female that was seen and examined today on 11/25/2024. Patient is a good historian of personal health Patient reports that she came to the emergency department with a chief complaint of abdominal pain. Onset was two months ago. Location is epigastric. Duration is on and off. Character is described as burning. Symptoms are aggravated with eating. There was no alleviating factors. Patient denies any associated nausea and vomiting. Patient reports that she was diagnosed with gallstones one month ago by ultrasound in the emergency department. Today in the emergency department potassium 3.4, abdominal ultrasound again shows cholelithiasis and po ssibly a mildly dilated common bile duct for which further evaluation with a MRCP was recommended by Radiology. For this reason emergency room physician recommended patient be admitted 11/26/2024 - patient seen at bedside in room 308. Patient is not in any acute distress, informed that the pain relieved . Discussed with the patient regarding the course of hospitalization to obtain further imaging and to go forward with the surgery in case of any positive findings. General surgery and gastroenterology has been consulted on the case, patient is currently NPO and started on LR at 75 mL/hour, Rocephin. Patient is currently hemodynamically stable. We will follow the patient closely 11.27.2024: Patient was seen and evaluated in room 308. Patient is comfortably sitting on the bed and denies any acute abdominal pain or diarrhea. She reports prior episodes of abdominal pain especially in the epigastrium and in the right upper quadrant, typically after eating fatty or greasy foods over the past 2 months. She is scheduled for a HIDA scan and MRCP today. A Gastroenterology consult was ordered and we will follow their recommendations. If the MRCP is negative, she can be discharged with outpatient follow-up with Gastroenterology and General surgery. REVIEW OF SYSTEMS CONSTITUTIONAL: Denies fevers, chills, or night sweats. No unintentional weight loss reported. CARDIOVASCULAR: Denies any exertional angina, dyspnea on exertion, orthopnea, paroxysmal nocturnal dyspnea, palpitations, life-threatening arrhythmias, claudication. PULMONARY: Denies any shortness of breath, cough, phlegm/sputum, hemoptysis, pleuritic chest pain. GASTROINTESTINAL: Denies any type of dysphagia to either liquids or solids. Denies nausea, vomiting, pyrosis, early satiety, abdominal pain, diarrhea, constipation, or changes in stool consistency or caliber. Denies coffee-ground emesis, hematemesis, hematochezia, or melanotic stools. GENITOURINARY: Denies frequency, urgency, nocturia, hematuria or incontinence (Storage/Irritative symptoms.) Low urinary stream, straining to void, urinary intermittency or hesitancy, splitting of the voiding stream, terminal dribbling. PHYSICAL EXAM GENERAL APPEARANCE: The patient is awake, alert, and oriented, in no acute cardiopulmonary distress. CARDIOVASCULAR: Regular. S1 and S2 normal. No appreciable rubs, murmurs or gallops. ABDOMEN: Soft, nontender, and nondistended. There is no rebound, voluntary guarding, or rigidity. : Deferred. No Tavares. EXTREMITIES: Non-edematous and not cyanotic. No clubbing. Good capillary refill. SKIN: No skin breakdown. Vital Signs (last 8hr) Date Time Temp Pulse Resp B/P (MAP) Pulse Ox O2 Delivery O2 Flow Rate FiO2 11/27/24 08:08 96 Room Air* 0 21 11/27/24 08:00 97.9 68 18 110/61 98 Room Air 21 11/27/24 04:00 97.9 74 20 118/72 96 Room Air LABS: Laboratory: Test 11/27/24 04:12 11/26/24 06:05 11/25/24 21:57 11/25/24 21:53 Range/Units White Blood Count 5.5 4.8-10.8 K/uL Red Blood Count 4.72 4.00-5.50 MIL/uL Hemoglobin 12.6 12.0-16.0 g/dL Hematocrit 39.0 36-48 % Mean Corpuscular Volume 82.6 79-99 fL Mean Corpuscular Hemoglobin 26.7 L 27.0-33.0 pg Mean Corpuscular Hemoglobin Concent 32.3 32.0-36.0 g/dL Red Cell Distribution Width 13.4 11.0-15.5 % Platelet Count 238 130-400 K/uL Mean Platelet Volume 12.7 H 7.5-10.5 fL Immature Granulocyte % (Auto) 0.4 0-1 % Neutrophils (%) (Auto) 46.2 40.0-77.0 % Lymphocytes (%) (Auto) 40.5 21.0-51.0 % Monocytes (%) (Auto) 7.3 3.0-13.0 % Eosinophils (%) (Auto) 4.7 0.0-8.0 % Basophils (%) (Auto) 0.9 0.0-5.0 % Neutrophils # (Auto) 2.5 1.8-7.7 K/uL Lymphocytes # (Auto) 2.2 1.0-4.8 K/uL Monocytes # (Auto) 0.4 0.1-1.0 K/uL Eosinophils # (Auto) 0.26 0.00-0.70 K/uL Basophils # (Auto) 0.05 0.00-0.20 K/uL Absolute Immature Granulocyte (auto 0.02 0-1 K/uL Nucleated Red Blood Cells 0.0 0.0-0.19 % Sodium Level 139 136-145 mmol/L Potassium Level 3.7 3.5-5.1 mmol/L Chloride Level 103 101-111 mmol/L Carbon Dioxide Level 27 21-32 mmol/L Blood Urea Nitrogen 11 7-18 mg/dL Creatinine 0.6 0.5-1.0 mg/dL Glomerular Filtration Rate Calc 128 >90 mL/min Random Glucose 74 70-105 mg/dL Total Calcium 8.7 8.5-10.1 mg/dL Total Bilirubin 0.5 0.2-1.0 mg/dL Aspartate Amino Transf (AST/SGOT) 56 H 10-37 U/L Alanine Aminotransferase (ALT/SGPT) 73 12-78 U/L Alkaline Phosphatase 73 50-136 U/L Total Protein 6.3 6.0-8.3 g/dL Albumin 3.7 3.5-5.0 g/dL Phosphorus Level 3.8 2.5-4.9 mg/dL Magnesium Level 1.80 1.80-2.40 mg/dL C-Reactive Protein, Quantitative 2.10 0.5-3.0 mg/L Procalcitonin < 0.05 L 0.05-0.5 ng/mL Urine Color COLORLESS YELLOW Urine Appearance CLEAR CLEAR Urine pH 8.0 5.0-8.0 Urine Specific [place] 1.004 1.001-1.031 Urine Protein NEGATIVE NEGATIVE mg/dL Urine Glucose (UA) NEGATIVE NEGATIVE mg/dL Urine Ketones NEGATIVE NEGATIVE mg/dL Urine Occult Blood NEGATIVE NEGATIVE Urine Nitrate NEGATIVE NEGATIVE Urine Bilirubin NEGATIVE NEGATIVE mg/dL Urine Urobilinogen 0.2 0.2-1.0 mg/dL Urine Leukocyte Esterase 25 H NEGATIVE [place]/uL Urine RBC 2-5 H 0-1 /HPF Urine WBC 2-5 H 0-1 /HPF Urine Squamous Epithelial Cells MOD 0-2 /HPF Urine Bacteria None None Seen /HPF Urine HCG, Qualitative NEGATIVE NEGATIVE Direct Bilirubin 0.1 0.0-0.3 mg/dL Lipase 54 16-77 U/L Current Medications Medications (Trade) Dose Ordered Sig/Nathan Route PRN Reason Start Time Stop Time Status Last Admin Dose Admin Acetaminophen (TYLenol 325MG TAB) 650 mg Q6H PRN PO TEMPERATURE GREATER THAN 101.5 11/26/24 03:30 12/26/24 03:29 Ceftriaxone Sodium (ROCEphine 1G INJ) 1 gm Q24H IVPB 11/26/24 11:30 12/06/24 11:29 11/26/24 11:47 1 GM Enoxaparin Sodium (Lovenox) 40 mg DAILY SQ 11/26/24 09:00 12/26/24 08:59 11/26/24 08:52 40 MG Famotidine (Pepcid 20mg Tab) 20 mg DAILY PO 11/26/24 09:00 12/26/24 08:59 Hydralazine HCl (APRESOLine 20MG INJ) 10 mg Q6H PRN IV For:SBP above 160;DBP above 90 11/26/24 03:30 12/26/24 03:29 Lactated Ringer's 1,000 ml @ 75 mls/hr [id number] IV 11/26/24 03:30 12/26/24 03:29 11/26/24 15:23 75 MLS/HR Magnesium Sulfate 50 ml @ 0 mls/hr PROTOCOL PRN IV MAGNESIUM PROTOCOL 11/26/24 07:30 12/26/24 07:29 11/26/24 15:10 25 MLS/HR Morphine Sulfate (morPHINE 4MG SYG) 4 mg Q4H PRN IVP SEVERE PAIN (7-10) 11/26/24 03:30 12/03/24 03:29 11/26/24 04:14 4 MG Ondansetron HCl (zoFRAN 4MG INJ) 4 mg Q6H PRN IV NAUSEA/VOMITING 11/26/24 03:30 12/26/24 03:29 11/26/24 04:14 4 MG Potassium Chloride 100 ml @ 50 mls/hr AD PRN IV POTASSIUM PROTOCOL 11/26/24 07:30 12/26/24 07:29 Potassium Chloride 100 ml @ 100 mls/hr AD PRN IV POTASSIUM PROTOCOL 11/26/24 07:30 12/26/24 07:29 Potassium Chloride (K-Dur/Klor-Con 20meq) 20 meq AD PRN PO POTASSIUM PROTOCOL 11/26/24 07:30 12/26/24 07:29 Potassium Chloride (KCl 10% Elixir 20meq/15ml) 20 meq AD PRN PO POTASSIUM PROTOCOL 11/26/24 07:30 12/26/24 07:29 DIAGNOSTICS / RADIOLOGY: [place] [address] IMAGING REPORT Signed PATIENT: MARCOS ROOT MR#: [id number] : 2000 SEX: F AGE: 24 LOCATION: [facility] ORDER 47 STATUS: [facility] REPORT#: [id number] SERVICE 46 REASON: ruq abd pain ORDERING PHYSICIAN: GAVIN HOOKS PROCEDURE: ABDRUQLTD - US ABDOMINAL RUQ\LTD EXAM: US Abdomen, Right Upper Quadrant. CLINICAL HISTORY: Right upper quadrant pain. TECHNIQUE: Right upper quadrant sonography performed with image documentation. COMPARISON: None provided. FINDINGS: LIVER: Measures 12.4 cm. Focal fatty infiltration is identified in the left lobe measuring 4.1 ??? 1.9 ??? 3.7 cm. No focal hepatic mass identified. GALLBLADDER: Multiple gallstones present. Gallbladder wall thickness measures 2 mm (within normal limits). COMMON BILE DUCT: Dilated, measuring 7.5 mm. PANCREAS: Within normal limits. RIGHT KIDNEY: Measures 8.2 ??? 3.5 ??? 3.3 cm. Normal renal cortical echogenicity. No renal mass, calculus, or hydronephrosis. IMPRESSION: Cholelithiasis with no acute cholecystitis. Mildly dilated common bile duct. Further evaluation with MRCP is suggested to rule out choledocholithiasis. Focal fatty infiltration in the left hepatic lobe. /[place] DICTATED BY: SANDEEP BECKHAM Jr., MD DATE: 11/25/242342 ELECTRONICALLY SIGNED BY: SANDEEP BECKHAM Jr., MD DATE: 11/25/24 8643 ASSESSMENT: Cholelithiasis, POA Possible choledocholithiasis Fatty liver Hypokalemia, POA resolved Asymptomatic bacteriuria POA Dehydration POA PLAN: Keep patient NPO till HIDA scan and transition to fluids later today and NPO fr om midnight for MRCP tomorrow. Cholelithiasis, possible choledocholithiasis, dehydration IV fluid maintenance therapy lactated Ringer's at 75 mL/HR. As needed analgesia with morphine. We will follow up with HIDA scan and MRCP results today patient is started on Rocephin (Day 2) As-needed antiemetic, Zofran. Replace potassium per hospital protocol. consulted general surgery Consulted gastroenterology GI prophylaxis, famotidine Patient course of hospitalization depending on HIDA scan result, MRCP result, clinical response ATTESTATION BY PHYSICIAN I have seen and examined the patient. I reviewed the documentation, medical decision making, and treatment plan as noted by the resident provider above. I agree with the findings and plan of care. Chau Kurtz MD, LAKSHMI MD Nov 27, 2024 09:49
--- NOTE | 2024-11-27 11:30 | NUR ---
TAKEN OFF UNIT VIA W/C FOR HIDA SCAN
--- NOTE | 2024-11-27 14:19 | NUR ---
RETURNED TO ROOM HIDA AND MRCP DONE
--- NOTE | 2024-11-27 15:03 | PN ---
GENERAL SURGERY PROGRESS NOTE Date/Time Patient Seen: [11/27/2024 13:45 ] Problem List: [ 24-year-old female with symptomatic cholelithiasis, possible choledocholithiasis] Interval History: [Patient is currently pain-free Tolerating liquid diet without any complaints of abdominal pain, nausea or vomiting HIDA scan and MRCP done today, pending results WBCs 5.5 Bilirubin 0.5 with normal LFTs ] Current Medications Medications (Trade) Dose Ordered Sig/Nathan Route Start Time Stop Time Status Last Admin Dose Admin Ceftriaxone Sodium (ROCEphine 1G INJ) 1 gm Q24H IVPB 11/26/24 11:30 12/06/24 11:29 11/27/24 10:22 1 GM Enoxaparin Sodium (Lovenox) 40 mg DAILY SQ 11/26/24 09:00 12/26/24 08:59 11/27/24 10:22 40 MG Famotidine (Pepcid 20mg Tab) 20 mg DAILY PO 11/26/24 09:00 12/26/24 08:59 Lactated Ringer's 1,000 ml @ 75 mls/hr [id number] IV 11/26/24 03:30 12/26/24 03:29 11/26/24 15:23 75 MLS/HR Physical Examination: GENERAL: [No acute distress, female, comfortably resting in bed.] HEAD: [Normocephalic.] EYES: [Nonicteric sclera bilaterally.] ENT: [Hearing grossly intact.] NECK: [Supple.] LUNGS: [Clear breath sounds bilaterally.] HEART: [Normal rate and rhythm.] VASC: [Peripheral pulses +2 bilaterally.] ABD: [Bowel sounds normal, soft, nontender, no organomegaly.] : [No CVA tenderness] EXT: [No edema.] SKIN: [No rashes or lesions noted.] NEURO: [Awake, alert, and oriented x3. No focal sensory or strength deficits noted.] Vital Signs (last 8hr) Date Time Temp Pulse Resp B/P (MAP) Pulse Ox O2 Delivery O2 Flow Rate FiO2 11/27/24 08:08 96 Room Air* 0 21 11/27/24 08:00 97.9 68 18 110/61 98 Room Air 21 Laboratory: [ ] Hematology Labs: Test 11/27/24 04:12 Range/Units White Blood Count 5.5 4.8-10.8 K/uL Red Blood Count 4.72 4.00-5.50 MIL/uL Hemoglobin 12.6 12.0-16.0 g/dL Hematocrit 39.0 36-48 % Mean Corpuscular Volume 82.6 79-99 fL Mean Corpuscular Hemoglobin 26.7 L 27.0-33.0 pg Mean Corpuscular Hemoglobin Concent 32.3 32.0-36.0 g/dL Red Cell Distribution Width 13.4 11.0-15.5 % Platelet Count 238 130-400 K/uL Mean Platelet Volume 12.7 H 7.5-10.5 fL Immature Granulocyte % (Auto) 0.4 0-1 % Neutrophils (%) (Auto) 46.2 40.0-77.0 % Lymphocytes (%) (Auto) 40.5 21.0-51.0 % Monocytes (%) (Auto) 7.3 3.0-13.0 % Eosinophils (%) (Auto) 4.7 0.0-8.0 % Basophils (%) (Auto) 0.9 0.0-5.0 % Neutrophils # (Auto) 2.5 1.8-7.7 K/uL Lymphocytes # (Auto) 2.2 1.0-4.8 K/uL Monocytes # (Auto) 0.4 0.1-1.0 K/uL Eosinophils # (Auto) 0.26 0.00-0.70 K/uL Basophils # (Auto) 0.05 0.00-0.20 K/uL Absolute Immature Granulocyte (auto 0.02 0-1 K/uL Nucleated Red Blood Cells 0.0 0.0-0.19 % Chemistry Labs: Test 11/27/24 04:12 11/26/24 06:05 11/25/24 21:53 Range/Units Sodium Level 139 136-145 mmol/L Potassium Level 3.7 3.5-5.1 mmol/L Chloride Level 103 101-111 mmol/L Carbon Dioxide Level 27 21-32 mmol/L Blood Urea Nitrogen 11 7-18 mg/dL Creatinine 0.6 0.5-1.0 mg/dL Glomerular Filtration Rate Calc 128 >90 mL/min Random Glucose 74 70-105 mg/dL Total Calcium 8.7 8.5-10.1 mg/dL Total Bilirubin 0.5 0.2-1.0 mg/dL Aspartate Amino Transf (AST/SGOT) 56 H 10-37 U/L Alanine Aminotransferase (ALT/SGPT) 73 12-78 U/L Alkaline Phosphatase 73 50-136 U/L Total Protein 6.3 6.0-8.3 g/dL Albumin 3.7 3.5-5.0 g/dL Phosphorus Level 3.8 2.5-4.9 mg/dL Magnesium Level 1.80 1.80-2.40 mg/dL C-Reactive Protein, Quantitative 2.10 0.5-3.0 mg/L Procalcitonin < 0.05 L 0.05-0.5 ng/mL Direct Bilirubin 0.1 0.0-0.3 mg/dL Lipase 54 16-77 U/L Diagnostics / Radiology: [Copy/Paste Echos/Imaging Report here] Impression and Plan: [24-year-old female currently pain-free and tolerating liquid diet May advance to low-fat diet Pending results of HIDA scan and MRCP If both are negative, patient was given the option to have elective cholecystectomy surgery as an outpatient If MRCP is positive, patient will be needing ERCP and cholecystectomy surgery this hospitalization Repeat labs in a.m. Surgical team will continue to follow Dr. Moreno updated on patient's status ] ATTESTATION BY PHYSICIAN I have seen and examined the patient. I reviewed the documentation, medical decision making, and treatment plan as noted by the mid-level provider above. I agree with the findings and plan of care. MD BIN SEXTON LETICIA A APRN Nov 27, 2024 15:03
[2024-11-27 16:00] VITALS: BP 105/70; PULSE 91; RESP 19; TEMP 97.9
--- NOTE | 2024-11-27 16:21 | HMCIMG ---
Examination Hepatobiliary study History CHOLECYSTITIS (Hx) / CHOLECYSTITIS, HIDA, Gallbladder Delays, 11/27/2024 (DICOM Hx) (DICOM Hx) Technique Tc-99m mebrofenin were administered intravenously followed by acquisition of planar images of the abdomen. Findings Following administration of radiotracer, there is prompt appearance of normal hepatic contours, followed by appearance of activity in unremarkable appearing bile ducts. There is nonvisualization of the gallbladder reflecting acute cholecystitis. IMPRESSION: 1. Nonvisualization of the gallbladder consistent with acute cholecystitis. /[place]
[2024-11-27 20:00] VITALS: BP 112/70; PULSE 77; RESP 20; TEMP 98.2; O2SAT 98
[2024-11-28] VITALS (24 sets, daily range): BP systolic 102–129; BP diastolic 53–80; PULSE 61–108; RESP 11–20; TEMP 97.1–98.5; O2SAT 97
[2024-11-28 05:31] LABS: IMMATURE GRANULOCYTE ABSOLUTE 0.02 K/uL (0-1); NUCLEATED RED BLOOD CELLS 0.0 % (0.0-0.19); PLATELET COUNT (AUTO) 210 K/uL (130-400); RED BLOOD CELL COUNT(AUTO) 4.28 MIL/uL (4.00-5.50); RED CELL DISTRIBUTION WIDTH 13.5 % (11.0-15.5); WHITE BLOOD COUNT (AUTO) 5.5 K/uL (4.8-10.8)
[2024-11-28 05:48] LABS: CREATININE 0.6 mg/dL (0.5-1.0); GLOMERULAR FILTR. RATE CALC 128.0 mL/min (>90); GLUCOSE,RANDOM 73.0 mg/dL (70-105); SODIUM SERUM 139.0 mmol/L (136-145); UREA NITROGEN, BLOOD 9.0 mg/dL (7-18)
--- NOTE | 2024-11-28 09:55 | OP ---
Operative Note: DATE OF PROCEDURE: 11/28/24 SURGEON: KASSANDRA TALAVERA MD SENIOR CHEMICAL PROCESS ENGINEER: [] ANESTHESIA: [] General ANESTHESIOLOGIST/RUBBER MOULDING MACHINE OPERATOR: [] PREOPERATIVE DIAGNOSIS: [] Left inguinal hernia POSTOPERATIVE DIAGNOSIS: [] The same SYNOPSIS: [] PROCEDURE: [] Open left inguinal hernia repair ESTIMATED BLOOD LOSS: [] Minimal INDICATIONS: [] DESCRIPTION OF PROCEDURE: [] With the patient under general anesthesia a left groin incision was done about 10 cm. Using cautery dissection I was able to expose the external oblique aponeurosis. This was opened in the inguinal ligament was exposed. The spermatic cord was the liver and we found that the patient had a direct hernia. There was no indirect component. After dissecting the inguinal ligament I placed a keyhole mesh medium and I anchored to the inguinal ligament with 2-0 Prolene continuous and another suture was used for the conjoined tendon. I created a new internal ring. After this was done and adequate hemostasis I closed the external oblique aponeurosis with 3-0 Vicryl. Subcutaneous suture with Vicryl was done and then we closed the skin with 4-0 Monocryl and Dermabond. We placed 10 cc of Marcaine at the end of the procedure. No complications KASSANDRA TALAVERA MD Nov 28, 2024 09:55
--- NOTE | 2024-11-28 10:31 | PN ---
[facility] PROGRESS NOTE Date of Service: Nov 28, 2024 Time of Service: 10:30 SUBJECTIVE: Ms. Root is a 24-year-old female that was seen and examined today on 11/25/2024. Patient is a good historian of personal health Patient reports that she came to the emergency department with a chief complaint of abdominal pain. Onset was two months ago. Location is epigastric. Duration is on and off. Character is described as burning. Symptoms are aggravated with eating. There was no alleviating factors. Patient denies any associated nausea and vomiting. Patient reports that she was diagnosed with gallstones one month ago by ultrasound in the emergency department. Today in the emergency department potassium 3.4, abdominal ultrasound again shows cholelithiasis and po ssibly a mildly dilated common bile duct for which further evaluation with a MRCP was recommended by Radiology. For this reason emergency room physician recommended patient be admitted 11/26/2024 - patient seen at bedside in room 308. Patient is not in any acute distress, informed that the pain relieved . Discussed with the patient regarding the course of hospitalization to obtain further imaging and to go forward with the surgery in case of any positive findings. General surgery and gastroenterology has been consulted on the case, patient is currently NPO and started on LR at 75 mL/hour, Rocephin. Patient is currently hemodynamically stable. We will follow the patient closely 11.27.2024: Patient was seen and evaluated in room 308. Patient is comfortably sitting on the bed and denies any acute abdominal pain or diarrhea. She reports prior episodes of abdominal pain especially in the epigastrium and in the right upper quadrant, typically after eating fatty or greasy foods over the past 2 months. She is scheduled for a HIDA scan and MRCP today. A Gastroenterology consult was ordered and we will follow their recommendations. If the MRCP is negative, she can be discharged with outpatient follow-up with Gastroenterology and General surgery. 11/28/2024: The patient was seen in room 308. The patient was awake, alert, and oriented. She did not complain of pain in her right upper quadrant or abdomen. The patient is NPO since yesterday. The patient was prescribed GI s oft diet yesterday but she was unable to tolerate it, therefore the patient was back on NPO. HIDA scan and MRCP were done yesterday. MRCP showed cholelithiasis with choledocholithiasis. She is planned for cholecystectomy today. REVIEW OF SYSTEMS CONSTITUTIONAL: Denies fevers, chills, or night sweats. No unintentional weight loss reported. CARDIOVASCULAR: Denies any exertional angina, dyspnea on exertion, orthopnea, paroxysmal nocturnal dyspnea, palpitations, life-threatening arrhythmias, claudication. PULMONARY: Denies any shortness of breath, cough, phlegm/sputum, hemoptysis, pleuritic chest pain. GASTROINTESTINAL: Denies any type of dysphagia to either liquids or solids. Denies nausea, vomiting, pyrosis, early satiety, abdominal pain, diarrhea, constipation, or changes in stool consistency or caliber. Denies coffee-ground emesis, hematemesis, hematochezia, or melanotic stools. GENITOURINARY: Denies frequency, urgency, nocturia, hematuria or incontinence (Storage/Irritative symptoms.) Low urinary stream, straining to void, urinary intermittency or hesitancy, splitting of the voiding stream, terminal dribbling. PHYSICAL EXAM GENERAL APPEARANCE: The patient is awake, alert, and oriented, in no acute cardiopulmonary distress. CARDIOVASCULAR: Regular. S1 and S2 normal. No appreciable rubs, murmurs or gallops. ABDOMEN: Soft, nontender, and nondistended. There is no rebound, voluntary guarding, or rigidity. : Deferred. No Tavares. EXTREMITIES: Non-edematous and not cyanotic. No clubbing. Good capillary refill. SKIN: No skin breakdown. Vital Signs (last 8hr) Date Time Temp Pulse Resp B/P (MAP) Pulse Ox O2 Delivery O2 Flow Rate FiO2 11/28/24 08:00 97.9 61 16 122/66 97 Room Air 11/28/24 04:00 97.9 76 20 102/53 94 Room Air LABS: Laboratory: Test 11/28/24 05:02 11/27/24 04:12 Range/Units White Blood Count 5.5 4.8-10.8 K/uL Red Blood Count 4.28 4.00-5.50 MIL/uL Hemoglobin 11.4 L 12.0-16.0 g/dL Hematocrit 35.7 L 36-48 % Mean Corpuscular Volume 83.4 79-99 fL Mean Corpuscular Hemoglobin 26.6 L 27.0-33.0 pg Mean Corpuscular Hemoglobin Concent 31.9 L 32.0-36.0 g/dL Red Cell Distribution Width 13.5 11.0-15.5 % Platelet Count 210 130-400 K/uL Mean Platelet Volume 12.6 H 7.5-10.5 fL Immature Granulocyte % (Auto) 0.4 0-1 % Neutrophils (%) (Auto) 43.2 40.0-77.0 % Lymphocytes (%) (Auto) 44.3 21.0-51.0 % Monocytes (%) (Auto) 7.4 3.0-13.0 % Eosinophils (%) (Auto) 3.6 0.0-8.0 % Basophils (%) (Auto) 1.1 0.0-5.0 % Neutrophils # (Auto) 2.4 1.8-7.7 K/uL Lymphocytes # (Auto) 2.5 1.0-4.8 K/uL Monocytes # (Auto) 0.4 0.1-1.0 K/uL Eosinophils # (Auto) 0.20 0.00-0.70 K/uL Basophils # (Auto) 0.06 0.00-0.20 K/uL Absolute Immature Granulocyte (auto 0.02 0-1 K/uL Nucleated Red Blood Cells 0.0 0.0-0.19 % Sodium Level 139 136-145 mmol/L Potassium Level 4.1 3.5-5.1 mmol/L Chloride Level 104 101-111 mmol/L Carbon Dioxide Level 24 21-32 mmol/L Blood Urea Nitrogen 9 7-18 mg/dL Creatinine 0.6 0.5-1.0 mg/dL Glomerular Filtration Rate Calc 128 >90 mL/min Random Glucose 73 70-105 mg/dL Total Calcium 8.4 L 8.5-10.1 mg/dL Total Bilirubin 0.5 0.2-1.0 mg/dL Aspartate Amino Transf (AST/SGOT) 56 H 10-37 U/L Alanine Aminotransferase (ALT/SGPT) 73 12-78 U/L Alkaline Phosphatase 73 50-136 U/L Total Protein 6.3 6.0-8.3 g/dL Albumin 3.7 3.5-5.0 g/dL Current Medications Medications (Trade) Dose Ordered Sig/Nathan Route PRN Reason Start Time Stop Time Status Last Admin Dose Admin Acetaminophen (TYLenol 325MG TAB) 650 mg Q6H PRN PO TEMPERATURE GREATER THAN 101.5 11/26/24 03:30 12/26/24 03:29 Ceftriaxone Sodium (ROCEphine 1G INJ) 1 gm Q24H IVPB 11/26/24 11:30 12/06/24 11:29 11/27/24 10:22 1 GM Enoxaparin Sodium (Lovenox) 40 mg DAILY SQ 11/26/24 09:00 12/26/24 08:59 11/28/24 08:21 40 MG Famotidine (Pepcid 20mg Tab) 20 mg DAILY PO 11/26/24 09:00 12/26/24 08:59 Hydralazine HCl (APRESOLine 20MG INJ) 10 mg Q6H PRN IV For:SBP above 160;DBP above 90 11/26/24 03:30 12/26/24 03:29 Lactated Ringer's 1,000 ml @ 75 mls/hr [id number] IV 11/26/24 03:30 12/26/24 03:29 11/28/24 05:20 75 MLS/HR Magnesium Sulfate 50 ml @ 0 mls/hr PROTOCOL PRN IV MAGNESIUM PROTOCOL 11/26/24 07:30 12/26/24 07:29 11/26/24 15:10 25 MLS/HR Morphine Sulfate (morPHINE 4MG SYG) 4 mg Q4H PRN IVP SEVERE PAIN (7-10) 11/26/24 03:30 12/03/24 03:29 11/27/24 17:32 4 MG Ondansetron HCl (zoFRAN 4MG INJ) 4 mg Q6H PRN IV NAUSEA/VOMITING 11/26/24 03:30 12/26/24 03:29 11/27/24 17:32 4 MG Potassium Chloride 100 ml @ 50 mls/hr AD PRN IV POTASSIUM PROTOCOL 11/26/24 07:30 12/26/24 07:29 Potassium Chloride 100 ml @ 100 mls/hr AD PRN IV POTASSIUM PROTOCOL 11/26/24 07:30 12/26/24 07:29 Potassium Chloride (K-Dur/Klor-Con 20meq) 20 meq AD PRN PO POTASSIUM PROTOCOL 11/26/24 07:30 12/26/24 07:29 Potassium Chloride (KCl 10% Elixir 20meq/15ml) 20 meq AD PRN PO POTASSIUM PROTOCOL 11/26/24 07:30 12/26/24 07:29 DIAGNOSTICS / RADIOLOGY: PATIENT: MARCOS ROOT MR#: [id number] : 2000 SEX: F AGE: 24 LOCATION: 3B ORDER 1213 STATUS: ADM IN REPORT#: [id number] SERVICE 1140 REASON: CHOLECYSTITIS ORDERING PHYSICIAN: CHAU KURTZ MD PROCEDURE: HIDAWO - NM HIDA WO EF/CCK Examination Hepatobiliary study History CHOLECYSTITIS (Hx) / CHOLECYSTITIS, HIDA, Gallbladder Delays, 11/27/2024 (DICOM Hx) (DICOM Hx) Technique Tc-99m mebrofenin were administered intravenously followed by acquisition of planar images of the abdomen. Findings Following administration of radiotracer, there is prompt appearance of normal hepatic contours, followed by appearance of activity in unremarkable appearing bile ducts. There is nonvisualization of the gallbladder reflecting acute cholecystitis. IMPRESSION: 1. Nonvisualization of the gallbladder consistent with acute cholecystitis. /[place] DICTATED BY: SANDEEP BECKHAM Jr., MD DATE: 11/27/241719 ELECTRONICALLY SIGNED BY: SANDEEP BECKHAM Jr., MD DATE: 11/27/241719 ASSESSMENT: Cholelithiasis, POA Possible choledocholithiasis Fatty liver Hypokalemia, POA resolved Asymptomatic bacteriuria POA Dehydration POA PLAN: Keep patient NPO till HIDA scan and transition to fluids later today and NPO from midnight for MRCP tomorrow. Cholelithiasis, possible choledocholithiasis, dehydration MRCP showed cholelithiasis and choledocholithiasis with a mildly dilated common bile duct. HIDA scan showed Nonvisualization of the gallbladder consistent with acute cholecystitis. The patient is planned for a cholecystectomy today. IV fluid maintenance therapy lactated Ringer's at 75 mL/HR. As needed analgesia with morphine. Patient is started on Rocephin (Day 2) As-needed antiemetic, Zofran. Urinary tract infection Urinalysis showed leukocyte esterase of 25 and WBC 2-5. Continue Rocephin (Day 2) GI prophylaxis, famotidine Patient course of hospitalization depending on HIDA scan result, MRCP result, clinical response PHYSICIAN RESIDENT STATEMENT I was present with the resident during the History and Physical exam and I have reviewed the resident's note. This case was discussed with the resident and I agree with the history, physical exam and medical decision making as documented. Additions/exceptions/observations were directly added to the notes. Chau Kurtz MD, SYED M MD Nov 28, 2024 10:31
--- NOTE | 2024-11-28 10:38 | HMCIMG ---
EXAM: MRCP Abdomen without Intravenous Contrast. CLINICAL HISTORY: Abdominal pain. Cholelithiasis. Mild dilated CBD. TECHNIQUE: Multisequence, multiplanar magnetic resonance images of the abdomen. CONTRAST: None. COMPARISON: Sonogram dated 11/25/24. FINDINGS: MRCP: No intrahepatic biliary ductal dilation is present. The gallbladder reveals multiple 2-5 mm calculi. The cystic duct is unremarkable. Trifurcation of the intrahepatic bile ducts noted. At least 4-5 calculi measuring approximately 3-3.5 mm were noted in the mid to distal CBD. The common bile duct is mildly dilated, measuring approximately 7 mm in maximum diameter. Normal pancreatic duct. No biliary strictures are present. There is no gross abnormality appreciated within the visualized pancreas, spleen, adrenals, or right kidney. Focal fatty infiltration in the left lobe of the liver measuring 4.1 ??? 1.9 ??? 3.7 cm. Tiny, simple cortical cyst in the upper pole of the left kidney. IMPRESSIONS: Cholelithiasis and choledocholithiasis with a mildly dilated common bile duct. No evidence of acute cholecystitis. /[place]
[2024-11-28] MEDS ORDERED: SUCCINYLCHOLINE CHLORIDE 20 MG/ML 10 ML VIAL ONE (10:55)
[2024-11-28] MEDS ORDERED: NEOSTIGMINE METHYLSULFATE 1MG/ML IV ONE (10:55)
[2024-11-28] MEDS ORDERED: LIDOCAINE PF 100MG/5ML (2%) SYRINGE 5ML ONE (10:55)
[2024-11-28] MEDS ORDERED: GLYCOPYRROLATE 0.2 MG/ML 5 ML VIAL ONE (10:55)
[2024-11-28] MEDS ORDERED: MIDAZOLAM HCL 1 MG/ML 2ML VIAL ONE (11:00)
[2024-11-28] MEDS: SUGAMMADEX SODIUM 200 MG/2 ML VIAL IV ONE (11:13)
[2024-11-28] MEDS: FAMOTIDINE 20MG VIAL IV ONE (11:13)
[2024-11-28] MEDS: cefTRIAXone 1G VIAL 1 GM ONE (11:44)
[2024-11-28] MEDS: INDOCYANINE GREEN 25 MG VIAL IJ ONE (12:51)
--- NOTE | 2024-11-28 13:44 | CONS ---
GASTROENTEROLOGY CONSULTATION NOTE Date of Consultation: Nov 28, 2024 Time of Consultation: 13:42 History of Present Illness: [This is a 24 yo female patient with past medical hx for preeclampsia who presented to the ER with complaints of abdominal pain x 2 months. She was found to have cholelithiasis one month ago after having had evaluation for abdominal pain.Abdominal ultrasound significant for cholelithiasis with no acute cholecystitis, mildly dilated common bile duct. Focal fatty infiltration in the left hepatic lobe. We were consult for choledocholithiasis. MRCP positive for cholelithiasis and choledocholithiasis with mildly dilated common bile duct. Hida scan positive for acute cholecystitis. Patient underwent a robotic laparoscopic cholecystectomy today. Patient found resting in SF in no acute distress. BBS clear. Abd soft and not distended. Incisions covered with dressings. Active BS. She reports having some pain and is controlled. Encouraged ambulation later this afternoon and tomorrow. Patient v/u. ] Review of Systems: CONSTITUTIONAL: No malaise or change in sensation of wellbeing. ENMT: No rhinorrhea, otorrhea, sinus pain, ear ache. CARDIOVASCULAR: No angina, palpitations, orthopnea or paroxysmal dyspnea. RESPIRATORY: No SOB. GASTROINTESTINAL: No abdominal pain, nausea, vomiting, diarrhea, hematemesis, melena or change in the patient's habitual bowel movements consistency/number. GENITOURINARY: No dysuria, hematuria or change in bladder continence. MUSCULOSKELETAL: No new muscle pain or decrease in muscular strength. No new joint swelling, redness or tenderness. SKIN: No new rash. Past Medical History: [Preeclampsia] SOCIAL HISTORY: [Negative for smoking, alcohol use, drug use. Patient lives with a boyfriend, Jony Jacinto. Patient is typically independent of her ADLs. Patient denies difficulty paying her bills.] SURGICAL HISTORY: [Denies Coded Allergies: No Known Drug Allergies (Unverified Allergy, Unknown, 05/02/22) Physical Exam: GEN: Awake, alert, oriented in person, time and place, and in no acute distress. HEENT: No rhinorrhea. Oral pharyngeal mucosa is pink, moist and within normal limits. CHEST: Inspection, palpation and percussion of the chest were unremarkable. Lung auscultation revealed normal breath sounds bilaterally. CARDIAC: PMI is within normal limits. Heart sounds are regular. ABD: Soft, non-tender and not distended. No peritoneal signs on palpation. No organomegaly. Normal bowel sounds. Incisions covered with dry dressing. EXT: No cyanosis or clubbing. No edema. SKIN: Intact. No rashes. JOINTS: No evidence of synovitis or acute arthritis. NEURO: Alert and oriented to name, place and person. No focal motor deficits. Normal speech. Strength is normal. Vital Sign (Last 24 Hours) 11/27/24 11/28/24 20:00 08:00 Temp 97.9 Pulse 61 Resp 16 B/P (MAP) 122/66 Pulse Ox 97 O2 Delivery Room Air O2 Flow Rate 0 FiO2 21 Laboratory: [ ] Laboratory: Test 11/28/24 05:02 11/27/24 04:12 Range/Units White Blood Count 5.5 4.8-10.8 K/uL Red Blood Count 4.28 4.00-5.50 MIL/uL Hemoglobin 11.4 L 12.0-16.0 g/dL Hematocrit 35.7 L 36-48 % Mean Corpuscular Volume 83.4 79-99 fL Mean Corpuscular Hemoglobin 26.6 L 27.0-33.0 pg Mean Corpuscular Hemoglobin Concent 31.9 L 32.0-36.0 g/dL Red Cell Distribution Width 13.5 11.0-15.5 % Platelet Count 210 130-400 K/uL Mean Platelet Volume 12.6 H 7.5-10.5 fL Immature Granulocyte % (Auto) 0.4 0-1 % Neutrophils (%) (Auto) 43.2 40.0-77.0 % Lymphocytes (%) (Auto) 44.3 21.0-51.0 % Monocytes (%) (Auto) 7.4 3.0-13.0 % Eosinophils (%) (Auto) 3.6 0.0-8.0 % Basophils (%) (Auto) 1.1 0.0-5.0 % Neutrophils # (Auto) 2.4 1.8-7.7 K/uL Lymphocytes # (Auto) 2.5 1.0-4.8 K/uL Monocytes # (Auto) 0.4 0.1-1.0 K/uL Eosinophils # (Auto) 0.20 0.00-0.70 K/uL Basophils # (Auto) 0.06 0.00-0.20 K/uL Absolute Immature Granulocyte (auto 0.02 0-1 K/uL Nucleated Red Blood Cells 0.0 0.0-0.19 % Sodium Level 139 136-145 mmol/L Potassium Level 4.1 3.5-5.1 mmol/L Chloride Level 104 101-111 mmol/L Carbon Dioxide Level 24 21-32 mmol/L Blood Urea Nitrogen 9 7-18 mg/dL Creatinine 0.6 0.5-1.0 mg/dL Glomerular Filtration Rate Calc 128 >90 mL/min Random Glucose 73 70-105 mg/dL Total Calcium 8.4 L 8.5-10.1 mg/dL Total Bilirubin 0.5 0.2-1.0 mg/dL Aspartate Amino Transf (AST/SGOT) 56 H 10-37 U/L Alanine Aminotransferase (ALT/SGPT) 73 12-78 U/L Alkaline Phosphatase 73 50-136 U/L Total Protein 6.3 6.0-8.3 g/dL Albumin 3.7 3.5-5.0 g/dL Current Medications Medications (Trade) Dose Ordered Sig/Nathan Route PRN Reason Start Time Stop Time Status Last Admin Dose Admin Acetaminophen (TYLenol 325MG TAB) 650 mg Q6H PRN PO TEMPERATURE GREATER THAN 101.5 11/26/24 03:30 12/26/24 03:29 Ceftriaxone Sodium (ROCEphine 1G INJ) 1 gm Q24H IVPB 11/26/24 11:30 12/06/24 11:29 11/28/24 11:44 1 GM Enoxaparin Sodium (Lovenox) 40 mg DAILY SQ 11/26/24 09:00 12/26/24 08:59 11/28/24 08:21 40 MG Famotidine (Pepcid 20mg Tab) 20 mg DAILY PO 11/26/24 09:00 12/26/24 08:59 Hydralazine HCl (APRESOLine 20MG INJ) 10 mg Q6H PRN IV For:SBP above 160;DBP above 90 11/26/24 03:30 12/26/24 03:29 Lactated Ringer's 1,000 ml @ 75 mls/hr [id number] IV 11/26/24 03:30 12/26/24 03:29 11/28/24 05:20 75 MLS/HR Magnesium Sulfate 50 ml @ 0 mls/hr PROTOCOL PRN IV MAGNESIUM PROTOCOL 11/26/24 07:30 12/26/24 07:29 11/26/24 15:10 25 MLS/HR Morphine Sulfate (morPHINE 4MG SYG) 4 mg Q4H PRN IVP SEVERE PAIN (7-10) 11/26/24 03:30 12/03/24 03:29 11/27/24 17:32 4 MG Ondansetron HCl (zoFRAN 4MG INJ) 4 mg Q6H PRN IV NAUSEA/VOMITING 11/26/24 03:30 12/26/24 03:29 11/27/24 17:32 4 MG Potassium Chloride 100 ml @ 50 mls/hr AD PRN IV POTASSIUM PROTOCOL 11/26/24 07:30 12/26/24 07:29 Potassium Chloride 100 ml @ 100 mls/hr AD PRN IV POTASSIUM PROTOCOL 11/26/24 07:30 12/26/24 07:29 Potassium Chloride (K-Dur/Klor-Con 20meq) 20 meq AD PRN PO POTASSIUM PROTOCOL 11/26/24 07:30 12/26/24 07:29 Potassium Chloride (KCl 10% Elixir 20meq/15ml) 20 meq AD PRN PO POTASSIUM PROTOCOL 11/26/24 07:30 12/26/24 07:29 Diagnostics / Radiology: [COPY/PASTE HERE IF NO REPORTS PLEASE DELETE SECTION] Assessment: Abdominal pain Cholelithiasis [Choledocholithiasis] Plan: No GI endoscopic intervention at this time. --Patient underwent a lap cholecystectomy today. Will defer to Surgery Recommend continuing GI prophylaxis bid Recommend patient continue with antibiotic therapy Pain medication as needed as well as antiemetics prn Optimize hydration Please call with questions, concerns, and change in clinical status Thank your for this consult. ] LOBITO CHOWDHURY NP Nov 28, 2024 13:44
[2024-11-28 14:05] LABS: LDL DIRECT 87 mg/dL (0-99)
--- NOTE | 2024-11-28 14:14 | OP ---
Operative Note: DATE OF PROCEDURE: 11/28/24 SURGEON: KASSANDRA TALAVERA MD ASSOCIATE ENTERTAINMENT EDITOR: [] ANESTHESIA: [] General ANESTHESIOLOGIST/HEAD CD REACTOR OPERATOR: [] PREOPERATIVE DIAGNOSIS: [] Cholecystitis POSTOPERATIVE DIAGNOSIS: [] The same SYNOPSIS: [] PROCEDURE: [] Robotic cholecystectomy ESTIMATED BLOOD LOSS: [] Minimal INDICATIONS: [] DESCRIPTION OF PROCEDURE: []With the patient prepped and draped we did a supraumbilical incision. Using direct technique I placed a balloon trocar. Two da Scooter trochars were placed in each side of the abdomen under direct vision. A 5 mm trocar was placed in the right lateral side. I then went to the console and the robot was docked. I took all adhesions from the gallbladder and I started dissecting the triangle of Calot. we used firefly to identify the cystic duct and CBD.The cystic duct and the cystic artery were clearly nel ntified and both were double clipped and divided. I took the gallbladder from below using cautery dissection. After the gallbladder was completely removed and adequate hemostasis was obtained I remove all the instruments from the abdomen. I undocked the robot and I came back to the bedside of the patient. I confirm hemostasis suction and irrigate and I placed the gallbladder in a bag. I injected 40 cc of Marcaine 0.25% as an abdominal tap block under direct vision. I injected 20 cc in each side of the abdomen. I took out all the trochars under direct vision and the gallbladder through the supraumbilical incision. I closed the fascia of the supraumbilical incision with a 0 Vicryl [id number]. All incisions were closed with staplers. The patient was transferred stable to the recovery room. KASSANDRA TALAVERA MD Nov 28, 2024 14:14
--- NOTE | 2024-11-28 14:50 | NUR ---
REPORT RECEIVED REPORT. POST LAB [facility]. NURSE REPORTS 4 ABD INCISION. 4X4 GAUZE. HR: 75 O2: 98% ON ROOM AIR. RR:15 BP: 122/74.
--- NOTE | 2024-11-28 14:53 | NUR ---
ERCP LOBITO CHOWDHURY SLAB OFF MILL TENDER CALLED TO VERIFY ERCP ORDER. MADE AWARE THAT PT WENT FOR A LAB [facility] WITH DR. TALAVERA. PER [place] TO CANCEL ERCP. NO FURTHER ORDERS AT THIS TIME.
--- NOTE | 2024-11-28 15:07 | NUR ---
Nutrition consult per wt loss Reviewed labs, notes, and medications. Pt's last october wt 67 kg, Pt not able to tolerate GI soft/bland diet, pending ERCP/ cholecystectomy 11/28/24, NPO, sedated, Ca 8.4(L), elevated AST 56, bilirubin WNL per chart review. Wt via supine scale, NPO since admin, last BM 11/26/24, well nourished, no wounds per nursing. 14%wt change within 2 months, significant. Pt with non-severe PCM, Supplement thiamin 100 mg/day for 5-7 days + MVI QD for at least 10 days. Pending labs to provide nutrition education. Advance diet when medically feasible. Recommendations: -Provide when medically feasible LOW FAT+ GI SOFT/BLAND DIET -Monitor PO intake -Encourage PO intake as able -Monitor BM -If no BM >3 days consider stool softener -Monitor electrolytes -Replenish electrolytes per protocol -Monitor wts -Reweigh as able -Order Vit D, vit b-12 labs to rule out deficiencies -Order lipid panel, A1C -Provide MVI QD when medically feasible -Recommend Pt to follow up with PCP -Monitor goals of care RD to follow + available for consult per protocol Addendum: 11/28/24 at [address] Amended: Links added.
--- NOTE | 2024-11-28 15:15 | NUR ---
ARRIVAL TO UNIT PT BACK FROM LAB [facility] DONE BY DR. TALAVERA. A&OX4. NON LABORED BREATHING. 4 ABDOMINAL INCISION. DRY AND INTACT. BP" 127/78 HR:74 O2:100% ON ROOM AIR. AT BEDSIDE. ANSWERED QUESTIONS AT THIS TIME.
[2024-11-29] VITALS: BP 117/64; PULSE 66; RESP 24; TEMP 97.8
--- NOTE | 2024-11-29 00:35 | NUR ---
PATIENT AMBULATING IN HALLWAY TWICE
[2024-11-29 04:00] VITALS: BP 105/57; PULSE 71; RESP 16; TEMP 98.3
[2024-11-29 05:27] LABS: IMMATURE GRANULOCYTE ABSOLUTE 0.05 K/uL (0-1); NUCLEATED RED BLOOD CELLS 0.0 % (0.0-0.19); PLATELET COUNT (AUTO) 237 K/uL (130-400); RED BLOOD CELL COUNT(AUTO) 4.81 MIL/uL (4.00-5.50); RED CELL DISTRIBUTION WIDTH 13.2 % (11.0-15.5); WHITE BLOOD COUNT (AUTO) 8.1 K/uL (4.8-10.8)
[2024-11-29 05:50] LABS: ASPARTATE AMINOTRANSFERASE 96.0 U/L (10-37); CREATININE 0.6 mg/dL (0.5-1.0); GLOMERULAR FILTR. RATE CALC 128.0 mL/min (>90); GLUCOSE,RANDOM 95.0 mg/dL (70-105); SODIUM SERUM 138.0 mmol/L (136-145); TOTAL PROTEIN, SERUM 7.1 g/dL (6.0-8.3); UREA NITROGEN, BLOOD 2.0 mg/dL (7-18)
[2024-11-29 08:00] VITALS: BP 112/53; PULSE 73; RESP 18; TEMP 98.1; O2SAT 100
[2024-11-29 11:30] VITALS: BP 110/67; PULSE 67; RESP 17; TEMP 98
--- NOTE | 2024-11-29 14:57 | DS ---
Discharge Summary Hospital Course Summary: *Name: Marcos Root *Date of : 2000 *Admission Date:11/25/2024 *Discharge Date: 11/29/2024 Attending Physician: Chau De Jesus Diagnosis: Cholelithiasis Course in Hospital: The patient is a 24-year-old female who presented with a 2 month history of intermittent abdominal pain, described as burning in character and typically exacerbated by eating, with no alleviating factors. She denied nausea and vomiting. On arrival to the hospital, the patient was afebrile, her blood pressure was 111/75, pulse rate 99, and respiratory rate 20. Initial laboratory investigations revealed potassium 3.4 (replaced according to protocol), lipase 54, CRP 2.10, total bilirubin 0.5, direct bilirubin 0.1, AST 24, ALT 24 and alkaline phosphatase 73. The hemoglobin was 14.2 and WBC was 7.4. During the course of admission the patient tried GI soft diet but was unable to tolerate therefore the patient was put on NPO. She was started on ceftriaxone. Recent ultrasound done in the ER demonstrated findings consistent with cholelithiasis without acute cholecystitis with mildly dilated common bile duct. She was subsequently referred to Gastroenterology, where MRCP and HIDA scans were ordered. MRCP showed cholelithiasis and choledocholithiasis with a mildly dilated common bile duct with no evidence of acute cholecystitis. Nonvisualization of the gallbladder consistent with acute cholecystitis was seen on the HIDA scan. Given these findings, cholecystectomy was planned and successfully performed.Postoperatively, the patient was able to pass flatus, began ambulating, and was started on regular diet. Patient was given morphine 4 mg for pain due to which the patient got a headache. After surgery she complained of shoulder pain for which she was given Toradol, which resulted in reduction of pain. During hospital admission, patient's urinalysis came back positive for UTI, for which ceftriaxone was continued. She is discharged on Macrobid antibiotic for UTI. 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 [place] [id number] GENERAL SURGERY CONSULTATION NOTE Date/Time Patient Seen: [ 11/26/2024 9:30 AM] Requesting Physician: [ Dr. Jordan Cintron] Reason for Consultation: [ Cholelithiasis with possible choledocholithiasis] History of Present Illness: [24-year-old female admitted for complaints of right upper quadrant pain that started yesterday and progressively became worse. Patient was told about 2 months ago that she had gallstones on a different ER visit but was discharged home. Patient states that since then, she has been to the ED about 4-5 times due to gallbladder pain. Yesterday, patient was evaluated in ED, ultrasound shows cholelithiasis with a possible dilated CBD. MRCP has been ordered but is pending to be done. Patient has been NPO since yesterday. WBCs 6.3, H and H12.7 and 30.9, bilirubin 0.5 with normal LFTs. Lipase normal at 54. No previous surgical history. Only medical history of preeclampsia with 1st ] Past Medical History: [ ] Past Surgical History: [ ] Family History: [ ] Social History: [ ] Habits: [Never] smoker. [Denies] alcohol consumption. [Denies] illicit drug use Current Medications Medications (Trade) Dose Ordered Sig/Nathan Route Start Time Stop Time Status Last Admin Dose Admin Ceftriaxone Sodium (ROCEphine 1G INJ) 1 gm Q24H IVPB 11/26/24 11:30 12/06/24 11:29 11/26/24 11:47 1 GM Enoxaparin Sodium (Lovenox) 40 mg DAILY SQ 11/26/24 09:00 12/26/24 08:59 11/26/24 08:52 40 MG Famotidine (Pepcid 20mg Tab) 20 mg DAILY PO 11/26/24 09:00 12/26/24 08:59 Lactated Ringer's 1,000 ml @ 75 mls/hr [id number] IV 11/26/24 03:30 12/26/24 03:29 11/26/24 04:30 75 MLS/HR Review of Systems: CONST: [No fever, fatigue, or weight changes.] EYES: [No recent vision problems.] ENT: [No congestion, ear pain, or sore throat.] C/V: [No chest pain, palpitations, or edema.] RESP: [No cough, congestion, wheezing or shortness of breath.] GI: [+ abdominal pain,no nausea, vomiting, constipation, or diarrhea.] : [No dysuria.] SKIN: [No rash.] NEURO: [No headache, focal numbness or weakness.] Physical Examination: GENERAL: [No acute distress, female, comfortably resting in bed.] HEAD: [Normocephalic.] EYES: [Nonicteric sclera bilaterally.] ENT: [Hearing grossly intact.] NECK: [Supple.] LUNGS: [Clear breath sounds bilaterally.] HEART: [Normal rate and rhythm.] VASC: [Peripheral pulses +2 bilaterally.] ABD: [Bowel sounds normal, soft, nontender, no organomegaly.] : [No CVA tenderness] EXT: [No edema.] SKIN: [No rashes or lesions noted.] NEURO: [Awake, alert, and oriented x3. No focal sensory or strength deficits noted.] Vital Signs (last 8hr) Date Time Temp Pulse Resp B/P (MAP) Pulse Ox O2 Delivery O2 Flow Rate FiO2 11/26/24 08:00 98.1 75 19 95/56 98 Room Air 11/26/24 07:49 97 Room Air* 0 21 Laboratory: [ ] Hematology Labs: Test 11/26/24 06:05 Range/Units White Blood Count 6.3 4.8-10.8 K/uL Red Blood Count 4.71 4.00-5.50 MIL/uL Hemoglobin 12.7 12.0-16.0 g/dL Hematocrit 38.9 36-48 % Mean Corpuscular Volume 82.6 79-99 fL Mean Corpuscular Hemoglobin 27.0 27.0-33.0 pg Mean Corpuscular Hemoglobin Concent 32.6 32.0-36.0 g/dL Red Cell Distribution Width 13.4 11.0-15.5 % Platelet Count 230 130-400 K/uL Mean Platelet Volume 12.9 H 7.5-10.5 fL Immature Granulocyte % (Auto) 0.3 0-1 % Neutrophils (%) (Auto) 66.4 40.0-77.0 % Lymphocytes (%) (Auto) 20.6 L 21.0-51.0 % Monocytes (%) (Auto) 9.1 3.0-13.0 % Eosinophils (%) (Auto) 2.2 0.0-8.0 % Basophils (%) (Auto) 1.4 0.0-5.0 % Neutrophils # (Auto) 4.2 1.8-7.7 K/uL Lymphocytes # (Auto) 1.3 1.0-4.8 K/uL Monocytes # (Auto) 0.6 0.1-1.0 K/uL Eosinophils # (Auto) 0.14 0.00-0.70 K/uL Basophils # (Auto) 0.09 0.00-0.20 K/uL Absolute Immature Granulocyte (auto 0.02 0-1 K/uL Nucleated Red Blood Cells 0.0 0.0-0.19 % Chemistry Labs: Test 11/26/24 06:05 11/25/24 21:53 Range/Units Sodium Level 142 136-145 mmol/L Potassium Level 3.8 3.5-5.1 mmol/L Chloride Level 103 101-111 mmol/L Carbon Dioxide Level 26 21-32 mmol/L Blood Urea Nitrogen 17 7-18 mg/dL Creatinine 0.7 0.5-1.0 mg/dL Glomerular Filtration Rate Calc 124 >90 mL/min Random Glucose 84 70-105 mg/dL Total Calcium 8.5 8.5-10.1 mg/dL Phosphorus Level 3.8 2.5-4.9 mg/dL Magnesium Level 1.80 1.80-2.40 mg/dL C-Reactive Protein, Quantitative 2.10 0.5-3.0 mg/L Procalcitonin < 0.05 L 0.05-0.5 ng/mL Total Bilirubin 0.5 0.2-1.0 mg/dL Direct Bilirubin 0.1 0.0-0.3 mg/dL Aspartate Amino Transf (AST/SGOT) 24 10-37 U/L Alanine Aminotransferase (ALT/SGPT) 24 12-78 U/L Alkaline Phosphatase 73 50-136 U/L Total Protein 7.4 6.0-8.3 g/dL Albumin 4.3 3.5-5.0 g/dL Lipase 54 16-77 U/L Diagnostics / Radiology: [Copy/Paste Echos/Imaging Report here] Assessment: [ Cholelithiasis with possible choledocholithiasis] Plan: [At this time, patient is pain-free with current medications given Keep patient NPO until MRCP is completed, then may start on clear liquids If MRCP is positive, patient will be needing GI consult for ERCP Continue with IV fluids and IV antibiotics Repeat labs in a.m. No emergent surgical intervention at this time Dr. Moreno updated on patient's status] ATTESTATION BY PHYSICIAN I have seen and examined the patient. I reviewed the documentation, medical decision making, and treatment plan as noted by the mid-level provider above. I agree with the findings and plan of care. 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 CLINICAL HISTORY: Right upper quadrant pain. TECHNIQUE: Right upper quadrant sonography performed with image documentation. COMPARISON: None provided. FINDINGS: LIVER: Measures 12.4 cm. Focal fatty infiltration is identified in the left lobe measuring 4.1 ??? 1.9 ??? 3.7 cm. No focal hepatic mass identified. GALLBLADDER: Multiple gallstones present. Gallbladder wall thickness measures 2 mm (within normal limits). COMMON BILE DUCT: Dilated, measuring 7.5 mm. PANCREAS: Within normal limits. RIGHT KIDNEY: Measures 8.2 ??? 3.5 ??? 3.3 cm. Normal renal cortical echogenicity. No renal mass, calculus, or hydronephrosis. IMPRESSION: Cholelithiasis with no acute cholecystitis. Mildly dilated common bile duct. Further evaluation with MRCP is suggested to rule out choledocholithiasis. Focal fatty infiltration in the left hepatic lobe. /[place] DICTATED BY: SANDEEP BECKHAM Jr., MD DATE: 11/25/242342 ELECTRONICALLY SIGNED BY: SANDEEP BECKHAM Jr., MD DATE: 11/25/242342 PATIENT: MARCOS ROOT MR#: [id number] : 2000 SEX: F AGE: 24 LOCATION: [facility] ORDER 53 STATUS: ADM IN REPORT#: [id number] SERVICE 52 REASON: abdominal pain, cholelithiasis, mildly dilated cbd ORDERING PHYSICIAN: ANAMIKA MALONEY DEVELOPMENT TECHNICAL LEAD PROCEDURE: MRCP WO - MRCP(ABDWO)CHOLANGIOPANCREATOG EXAM: MRCP Abdomen without Intravenous Contrast. CLINICAL HISTORY: Abdominal pain. Cholelithiasis. Mild dilated CBD. TECHNIQUE: Multisequence, multiplanar magnetic resonance images of the abdomen. CONTRAST: None. COMPARISON: Sonogram dated 11/25/24. FINDINGS: MRCP: No intrahepatic biliary ductal dilation is present. The gallbladder reveals multiple 2-5 mm calculi. The cystic duct is unremarkable. Trifurcation of the intrahepatic bile ducts noted. At least 4-5 calculi measuring approximately 3-3.5 mm were noted in the mid to distal CBD. The common bile duct is mildly dilated, measuring approximately 7 mm in maximum diameter. Normal pancreatic duct. No biliary strictures are present. There is no gross abnormality appreciated within the visualized pancreas, spleen, adrenals, or right kidney. Focal fatty infiltration in the left lobe of the liver measuring 4.1 ??? 1.9 ??? 3.7 cm. Tiny, simple cortical cyst in the upper pole of the left kidney. IMPRESSIONS: Cholelithiasis and choledocholithiasis with a mildly dilated common bile duct. No evidence of acute cholecystitis. /[place] DICTATED BY: SANDEEP BECKHAM Jr., MD DATE: 11/28/24 113 ELECTRONICALLY SIGNED BY: SANDEEP BECKHAM Jr., MD DATE: 11/28/241136 PATIENT: MARCOS ROOT MR#: [id number] : 2000 SEX: F AGE: 24 LOCATION: [facility] ORDER 1213 STATUS: ADM IN REPORT#: [id number] SERVICE 1140 REASON: CHOLECYSTITIS ORDERING PHYSICIAN: CHAU KURTZ MD PROCEDURE: HIDAWO - NM HIDA WO EF/CCK Examination Hepatobiliary study History CHOLECYSTITIS (Hx) / CHOLECYSTITIS, HIDA, Gallbladder Delays, 11/27/2024 (DICOM Hx) (DICOM Hx) Technique Tc-99m mebrofenin were administered intravenously followed by acquisition of planar images of the abdomen. Findings Following administration of radiotracer, there is prompt appearance of normal hepatic contours, followed by appearance of activity in unremarkable appearing bile ducts. There is nonvisualization of the gallbladder reflecting acute cholecystitis. IMPRESSION: 1. Nonvisualization of the gallbladder consistent with acute cholecystitis. /[place] DICTATED BY: SANDEEP BECKHAM Jr., MD DATE: 11/27/241719 ELECTRONICALLY SIGNED BY: SANDEEP BECKHAM Jr., MD DATE: 11/27/241719 Operative Note: DATE OF PROCEDURE: 11/28/24 SURGEON: KASSANDRA MORENO MD JUNIOR LINUX ADMINISTRATOR: [] ANESTHESIA: [] General ANESTHESIOLOGIST/BRICK BURNER HEAD: [] PREOPERATIVE DIAGNOSIS: [] Cholecystitis POSTOPERATIVE DIAGNOSIS: [] The same SYNOPSIS: [] PROCEDURE: [] Robotic cholecystectomy ESTIMATED BLOOD LOSS: [] Minimal INDICATIONS: [] DESCRIPTION OF PROCEDURE: []With the patient prepped and draped we did a supraumbilical incision. Using direct technique I placed a balloon trocar. Two da Scooter trochars were placed in each side of the abdomen under direct vision. A 5 mm trocar was placed in the right lateral side. I then went to the console and the robot was docked. I took all adhesions from the gallbladder and I started dissecting the triangle of Calot. we used firefly to identify the cystic duct and CBD.The cystic duct and the cystic artery were clearly identified and both were double clipped and divided. I took the gallbladder from below using cautery dissection. After the gallbladder was completely removed and adequate hemostasis was obtained I remove all the instruments from the abdomen. I undocked the robot and I came back to the bedside of the patient. I confirm hemostasis suction and irrigate and I placed the gallbladder in a bag. I injected 40 cc of Marcaine 0.25% as an abdominal tap block under direct vision. I injected 20 cc in each side of the abdomen. I took out all the trochars under direct vision and the gallbladder through the supraumbilical incision. I closed the fascia of the supraumbilical incision with a 0 Vicryl [id number]. All incisions were closed with staplers. The patient was transferred stable to the recovery room. KASSANDRA MORENO MD Nov 28, 2024 14:14 Assessment/Plan: ASSESSMENT: Cholelithiasis, POA Possible choledocholithiasis Fatty liver Hypokalemia, POA resolved Asymptomatic bacteriuria POA Dehydration POA Discharge Instructions: *Follow up with your primary care physician in 2 - 3 days after discharge. *Continue all medications as prescribed. Do not discontinue or change dosages without consulting your PCP. *Gradually resume normal activities as tolerated. *Seek immediate medical attention if you experience chest pain, SOB or severe headache. Home Medications: Discontinued Reported Medications Ibuprofen (Ibuprofen) 600 Mg Tablet, 600 MG PO Q6H PRN for PAIN, TAB 11/09/23 Discontinued Scripts Pantoprazole Sodium (Pantoprazole Sodium) 40 Mg Granpkt.dr, 40 MG PO DAILY PRN for GERD for 30 Days, #30 PACK Prov:ZACK STUBBS MD 09/18/24 Famotidine (Pepcid) 20 Mg Tablet, 1 TAB PO BID for 30 Days, #60 TAB 0 Refills Prov:GAVIN HOOKS DEVELOPMENT TECHNICAL LEAD 09/15/24 93/Iron/Folate 9/Dha (Westgel Dha Softgel) 1 Each Capsule, 1 EACH PO DAILY, #30 CAP 0 Refills Prov:RYANN WALLIS MD 05/02/22 Medication Profile: No Active Prescriptions or Reported Meds Time spent arranging discharge: 1-30 minutes PHYSICIAN STATEMENT I was present with the resident during the History and Physical exam and I have reviewed the resident's note. This case was discussed with the resident and I agree with the history, physical exam and medical decision making as documented. Additions/exceptions/observations were directly added to the notes. Chau Kurtz MD, SYED M MD Nov 29, 2024 14:57
[2024-11-29] MEDS ORDERED: MACR100 PO (15:13)
[2024-11-29 16:00] VITALS: BP 106/60; PULSE 75; RESP 17; TEMP 98.2
== END 2024-11-29 17:36 | disposition home or self-care (01) | DRG 418 ==
LOC: EDH 21:37 → EDHIP 21:38 → 3BH 11-26 00:54
PROVIDERS: ADMIT Internal Medicine; ATTEND Internal Medicine
PROC: 0YU60JZ Supplement Left Inguinal Region with Synthetic Substitute, Open Approach (ICD-10-PCS; 2024-11-28)
PROC: 8E0W4CZ Robotic Assisted Procedure of Trunk Region, Percutaneous Endoscopic Approach (ICD-10-PCS; 2024-11-28)
PROC: 0FT44ZZ Resection of Gallbladder, Percutaneous Endoscopic Approach (ICD-10-PCS; principal; 2024-11-28 12:56)
DX: K80.62 Calculus of gallbladder and bile duct with acute cholecystitis without obstruction (principal); N39.0 Urinary tract infection, site not specified; K40.90 Unilateral inguinal hernia, without obstruction or gangrene, not specified as recurrent; E87.6 Hypokalemia; K82.8 Other specified diseases of gallbladder; E86.0 Dehydration; K76.0 Fatty (change of) liver, not elsewhere classified; K66.0 Peritoneal adhesions (postprocedural) (postinfection)
CPT/HCPCS: 36415; 74181; 76705; 78226; 80048; 80053; 80061; 80076; 81001; 81025; 82306; 82607; 83690; 83735; 84100; 84145; 85025; 86140; 96374; 99285; A4450; A9537; G0378; J0330; J0696; J1100; J1650; J1885; J2003; J2250; J2270; J2405; J2470; J2704; J2710; J3010; J3475; J3490; J7030; J7120; A4216; A4222; A4223; A4600; A4930; C1769; J0665

== ENCOUNTER 2024-12-05 18:59 | Emergency (ER) | payer SELFPAY ==
[~2024-12-05] VITALS: Ht 160 cm; Wt 59.0 kg
[~2024-12-05 18:59] MED LIST changes: -FAMO-136 PO; -IBUP-1492 PO; +MACR100 PO; -PANT40GR PO; -PREN1CAP37 PO
[2024-12-05 19:41] LABS: IMMATURE GRANULOCYTE ABSOLUTE 0.05 K/uL (0-1); NUCLEATED RED BLOOD CELLS 0.0 % (0.0-0.19); PLATELET COUNT (AUTO) 262 K/uL (130-400); RED BLOOD CELL COUNT(AUTO) 4.82 MIL/uL (4.00-5.50); RED CELL DISTRIBUTION WIDTH 14.2 % (11.0-15.5); WHITE BLOOD COUNT (AUTO) 7.7 K/uL (4.8-10.8)
[2024-12-05] MEDS: 0.9%NACL 1000ML 1,000 ML IV SCH (19:46)
[2024-12-05 19:54] LABS: APPEARANCE,URINE CLEAR (CLEAR); GLUCOSE, URINE (UA) NEGATIVE (NEGATIVE); LEUKOCYTE ESTERASE ,URINE 25 Leu/uL (NEGATIVE); NITRATE,URINE NEGATIVE (NEGATIVE); OCCULT BLOOD,URINE NEGATIVE (NEGATIVE)
[2024-12-05 19:55] LABS: HCG,QUALITATIVE URINE NEGATIVE (NEGATIVE)
[2024-12-05 19:56] LABS: ASPARTATE AMINOTRANSFERASE 34.0 U/L (10-37); CREATININE 0.6 mg/dL (0.5-1.0); GLOMERULAR FILTR. RATE CALC 128.0 mL/min (>90); GLUCOSE,RANDOM 94.0 mg/dL (70-105); SODIUM SERUM 139.0 mmol/L (136-145); TOTAL PROTEIN, SERUM 6.9 g/dL (6.0-8.3); UREA NITROGEN, BLOOD 18.0 mg/dL (7-18)
[2024-12-05 19:58] LABS: ADD UA MICROSCOPIC YES
[2024-12-05 20:00] LABS: SQUAMOUS EPITHELIAL CELL,UR MANY /HPF (0-2)
--- NOTE | 2024-12-05 20:40 | ERN ---
ED Note History of Present Illness Stated Complaint: EPIGASTRIC PAIN, POST OP KALI Chief Complaint: Post-Op Problem Time Seen by MD: 19:03 Time Seen by Midlevel: 19:03 Dictation: The patient is a 24-year-old female status post cholecystectomy on November 28 who presents to the emergency department with complaints of epigastric abdominal pain, reports burning sensation about an hour prior to arrival. Patient reports pain is very mild reports pain to be a 2/10. Patient denies any fevers, denies any nausea or vomiting, denies diarrhea or constipation. Reports last bowel movement today. Allergies: Coded Allergies: No Known Drug Allergies (Unverified Allergy, Unknown, 05/02/22) Home Meds Active Scripts Pantoprazole Sodium (Protonix) 20 Mg Tablet.dr, 1 TAB PO DAILY for 10 Days, #10 TAB 0 Refills Prov:GAVIN HOOKS [employer] 12/05/24 Nitrofurantoin/Nitrofuran Mac (Macrobid) 100 Mg Cap, 1 CAP PO BID for 7 Days, #14 CAP 0 Refills Prov:SIMEON HICKS MD 11/29/24 Past Medical History Past Medical History: Other Additional Past Medical Hx: GASTRITIS, GALLSTONES Surgical History: Cholecystectomy, None LMP: Nov 16, 2024 : 2 Para: 1 Aborts: 0 RN Note Reviewed/Agreed w/PFSH: Yes Review of System Dictation Constitutional: Negative for fever,chills, and weight loss Eyes: Negative for injury, pain,redness, and discharge ENT: Negative for injury,pain or swelling Cardiovascular: Negative for chest pain, palpitations, and edema Respiratory: Negative for shortness of breath, cough, and wheezing, Abdomen/GI: Negative for nausea, vomiting, diarrhea, and constipation positive for abdominal pain Back: Negative for injury and pain : Negative for injury, bleeding and discharge MS/Extremity: Negative for injury and deformity Skin: Negative for rash, and discoloration Neuro: Negative for headache, weakness, numbness, tingling, and seizure Psych: Negative for suicide ideation, homicidal ideation, and hallucinations Initial Vital Sign VS Vital Signs Date Time Temp Pulse Resp B/P (MAP) Pulse Ox O2 Delivery O2 Flow Rate FiO2 12/05/24 19:01 98.1 83 16 125/73 100 Room Air 0 12/05/24 22:04 21 Physical Exam Dictation Vital Signs reviewed General Appearance: Alert, oriented x 3, no acute distress, well developed, nourished. Head and Face: non-traumatic. Eyes: PERRL, pink conjunctivas, eyelid no trauma, anterior chamber with arcus senilis. Ears: Pinnas intact and no signs of trauma or erythema ear canals clear and no discharge TM no erythema Nose: No discharge, no bleeding. Oropharynx: Mouth normal, tongue pink. pharynx clear,no erythema, tonsils no exudates, no abscesses noted, mucous membrane moist Neck: Supple, non-tender, no thyromegaly, no masses, no JVD, no bruits Breast:Deferred Chest:No tenderness, no crepitus, no paradoxical movement, no retractions Lungs:Clear, well-ventilated, symmetric, no rales, no wheezing, no rhonchi, no stridor, good breath sounds bilaterally Heart: Regular rate, regular rhythm, no murmur, no gallops Vascular: no peripheral edema, Abdomen: Soft, positive bowel sounds, nondistended, no guarding, nontender, no rebound, no masses no hepatomegaly, no splenomegaly, no Vogt's sign, no hernias. Rectal: Deferred Genital: Deferred Neurological: Normal speech, motor function intact, sensory function intact Musculoskeletal: Neck nontender, full range of motion, back nontender, full range of motion, Extremities: nontender, full range of motion Skin: Color pink, dry, no turgor, no rash, no lacerations, no abrasions, no contusions., three surgical incisions with rex on them, no erythema, no drainage Lymphatic: Deferred Results (Laboratory/Radiology) Laboratory/Radiology Laboratory Tests Test 12/05/24 19:32 White Blood Count 7.7 K/uL (4.8-10.8) Red Blood Count 4.82 MIL/uL (4.00-5.50) Hemoglobin 12.9 g/dL (12.0-16.0) Hematocrit 40.5 % (36-48) Mean Corpuscular Volume 84.0 fL (79-99) Mean Corpuscular Hemoglobin 26.8 pg (27.0-33.0) L Mean Corpuscular Hemoglobin Concent 31.9 g/dL (32.0-36.0) L Red Cell Distribution Width 14.2 % (11.0-15.5) Platelet Count 262 K/uL (130-400) Mean Platelet Volume 12.3 fL (7.5-10.5) H Immature Granulocyte % (Auto) 0.6 % (0-1) Neutrophils (%) (Auto) 59.6 % (40.0-77.0) Lymphocytes (%) (Auto) 29.7 % (21.0-51.0) Monocytes (%) (Auto) 6.2 % (3.0-13.0) Eosinophils (%) (Auto) 3.0 % (0.0-8.0) Basophils (%) (Auto) 0.9 % (0.0-5.0) Neutrophils # (Auto) 4.6 K/uL (1.8-7.7) Lymphocytes # (Auto) 2.3 K/uL (1.0-4.8) Monocytes # (Auto) 0.5 K/uL (0.1-1.0) Eosinophils # (Auto) 0.23 K/uL (0.00-0.70) Basophils # (Auto) 0.07 K/uL (0.00-0.20) Absolute Immature Granulocyte (auto 0.05 K/uL (0-1) Nucleated Red Blood Cells 0.0 % (0.0-0.19) Urine Color YELLOW (YELLOW) Urine Appearance CLEAR (CLEAR) Urine pH 8.0 (5.0-8.0) Urine Specific [place] 1.024 (1.001-1.031) Urine Protein NEGATIVE mg/dL (NEGATIVE) Urine Glucose (UA) NEGATIVE mg/dL (NEGATIVE) Urine Ketones NEGATIVE mg/dL (NEGATIVE) Urine Occult Blood NEGATIVE (NEGATIVE) Urine Nitrate NEGATIVE (NEGATIVE) Urine Bilirubin NEGATIVE mg/dL (NEGATIVE) Urine Urobilinogen 0.2 mg/dL (0.2-1.0) Urine Leukocyte Esterase 25 Mercedez/uL (NEGATIVE) H Urine RBC 0-1 /HPF (0-1) Urine WBC 2-5 /HPF (0-1) H Urine Squamous Epithelial Cells MANY /HPF (0-2) Urine Bacteria None /HPF (None Seen) Urine HCG, Qualitative NEGATIVE (NEGATIVE) Sodium Level 139 mmol/L (136-145) Potassium Level 3.1 mmol/L (3.5-5.1) L Chloride Level 103 mmol/L (101-111) Carbon Dioxide Level 30 mmol/L (21-32) Blood Urea Nitrogen 18 mg/dL (7-18) Creatinine 0.6 mg/dL (0.5-1.0) Glomerular Filtration Rate Calc 128 mL/min (>90) Random Glucose 94 mg/dL (70-105) Total Calcium 8.7 mg/dL (8.5-10.1) Total Bilirubin 0.3 mg/dL (0.2-1.0) Aspartate Amino Transf (AST/SGOT) 34 U/L (10-37) Alanine Aminotransferase (ALT/SGPT) 70 U/L (12-78) Alkaline Phosphatase 85 U/L (50-136) Total Protein 6.9 g/dL (6.0-8.3) Albumin 4.1 g/dL (3.5-5.0) Lipase 77 U/L (16-77) EXAM: US Abdomen, Right Upper Quadrant. CLINICAL HISTORY: Abdominal pain, status post cholecystectomy. TECHNIQUE: Right upper quadrant sonography performed with image documentation. COMPARISON: MRCP dated 11/27/2024. FINDINGS: LIVER: Within normal limits in size and echogenicity. No mass. Liver measures 15.4 cm. A 2.6 x 1.6 x 2.8 cm hyperechoic area in segment 4B of the liver, adjacent to the falciform ligament. GALLBLADDER: Post cholecystectomy status. COMMON BILE DUCT: No dilation. The common bile duct measures 6 mm. PANCREAS: The visualized pancreas appears within normal limits. The distal pancreas is obscured by bowel gas. RIGHT KIDNEY: Unremarkable. Normal renal contours. No renal mass or calculus. No hydronephrosis. Right kidney measures 9.3 x 3.7 x 3.9 cm. IMPRESSION: Post cholecystectomy status. A 2.6 x 1.6 x 2.8 cm hyperechoic area in segment 4B of the liver, adjacent to the falciform ligament, is likely a focal fatty deposition. Compared to the prior MRCP, there is an interval cholecystectomy status and persistent focal fatty infiltration in segment 4B of the liver. /[facility] Labs Reviewed?: Yes ED Course ED Course Orders Procedure Category Date Status Time Cbc With Differential LAB 12/05/24 Complete 19:14 Comprehensive LAB 12/05/24 Complete Metabolic Panel 19:14 ,Urine Test LAB 12/05/24 Complete 19:14 Urinalysis Profile LAB 12/05/24 Complete 19:14 0.9%Nacl 1000ml (Ns PHA 12/05/24 In Process 1000ml) 19:30 Morphine 4mg Syg PHA 12/05/24 In Process (Morphine 4mg Syg) 19:30 Ondansetron 4mg Inj PHA 12/05/24 In Process (Zofran 4mg Inj) 19:30 Pantoprazole 40mg Inj PHA 12/05/24 Complete (Protonix 40mg Inj 19:30 Lipase LAB 12/05/24 Complete 19:14 Potassium Bicarb/Cit PHA 12/05/24 Complete Ac 25meq (K-Lyte Ta 20:30 Us Abdominal Ruq\Ltd US 12/05/24 Resulted 20:11 Current Medications Medications (Trade) Dose Ordered Sig/Nathan Route PRN Reason Start Time Stop Time Status Last Admin Dose Admin Morphine Sulfate (morPHINE 4MG SYG) 4 mg ONCE IVP 12/05/24 19:30 12/05/24 23:30 Ondansetron HCl (zoFRAN 4MG INJ) 4 mg ONCE IVP 12/05/24 19:30 12/05/24 23:30 Pantoprazole Sodium (PROTonix 40MG INJ) 40 mg ONCE ONCE IVP 12/05/24 19:30 12/05/24 19:31 DC Potassium Bicarbonate (K-Lyte Tablet Eff 25 Meq Tablet.eff) 25 meq ONCE ONCE PO 12/05/24 20:30 12/05/24 20:31 DC 12/05/24 21:06 Sodium Chloride 1,000 ml @ 0 mls/hr ONCE IV 12/05/24 19:30 12/06/24 19:29 12/05/24 19:46 Vital Signs Date Time Temp Pulse Resp B/P (MAP) Pulse Ox O2 Delivery O2 Flow Rate FiO2 12/05/24 22:04 98.2 90 18 129/71 98 Room Air* 0 21 12/05/24 19:01 98.1 83 16 125/73 100 Room Air 0 Medical Decision Making MDM The patient is a 24-year-old female status post cholecystectomy on November 28 who presents to the emergency department with complaints of epigastric abdominal pain, reports burning sensation about an hour prior to arrival. Patient reports pain is very mild reports pain to be a 2/10. Patient denies any fevers, denies any nausea or vomiting, denies diarrhea or constipation. Reports last bowel movement today. CBC showed no leukocytosis, no anemia, chemistry showed mild hypokalemia, negative lipase, negative liver enzymes, urinalysis with slight leukocyte esterase negative hCG. Ultrasound revealed post cholecystectomy status, fatty focal disposition. On physical exam patient is in no acute distress, patient has a nontender abdomen to palpation. Patient refused pain medications reports her pain is only mild. Wounds have been healing appropriately. Patient with stable vital signs. Patient instructed to follow up with Dr. Moreno. If where she has a follow up appointment in a week. Differential diagnosis: Gastritis, pancreatitis, electrolyte imbalance, gastroenteritis Need for hospitalization: Patient does not meet criteria for hospitalization. There are no social concerns with this patient. DX & DISP Disposition: Discharge Departure Impression: Primary Impression: Abdominal pain Additional Impressions: Gastritis, Post-operative pain Condition: Stable Scripts Pantoprazole Sodium (Protonix) 20 Mg Tablet.dr 1 TAB PO DAILY for 10 Days, #10 TAB 0 Refills Prov: GAVIN HOOKS 12/05/24 Additional Instructions: Your labs were unremarkable except for your potassium was slightly low. Please follow up with Dr. Moreno as soon as possible. Follow up with the primary doctor in 1-2 days. Avoid any foods that exacerbate your symptoms. If anything worsens please return to ER. FOLLOW-UP WITH PRIMARY CARE PROVIDER IN 1 TO 2 DAYS. TAKE MEDICATIONS DIRECTED HERE IN THE EMERGENCY ROOM. OKAY TO CONTINUE HOME MEDICATIONS UNLESS OTHERWISE DISCUSSED DURING YOUR VISIT IN THE EMERGENCY ROOM TODAY. RETURN TO YOUR NEAREST EMERGENCY ROOM IF SYMPTOMS WORSEN OR IF THERE IS NO IMPROVEMENT. CALL 911 IF YOU NEED IMMEDIATE ASSISTANCE. TAKE TYLENOL [id number] NEEDED AND IF NO CONTRAINDICATIONS ARE PRESENT. INCREASE ORAL HYDRATION. A WOUND CULTURE OR URINE CULTURE WAS ORDERED HERE IN THE EMERGENCY ROOM DEPARTMENT PLEASE FOLLOW-UP WITH PRIMARY CARE PROVIDER AND ADVISE THEM TO GET REPEAT PORTS FROM OUR FACILITY. IF YOU HAD ANY ELLIE WRAP/SPLINTS THAT WERE APPLIED HERE, PLEASE DO NOT REMOVE THEM UNTIL YOU SEE YOUR PRIMARY CARE OR SPECIALTY. Referrals: SELF,REFERRAL (PCP) KASSANDRA MORENO MD Time of Disposition: 21:59 I have reviewed the case, and I agree with, Diagnosis and Plan GAVIN HOOKS Dec 05, 2024 20:40
--- NOTE | 2024-12-05 21:39 | HMCIMG ---
EXAM: US Abdomen, Right Upper Quadrant. CLINICAL HISTORY: Abdominal pain, status post cholecystectomy. TECHNIQUE: Right upper quadrant sonography performed with image documentation. COMPARISON: MRCP dated 11/27/2024. FINDINGS: LIVER: Within normal limits in size and echogenicity. No mass. Liver measures 15.4 cm. A 2.6 x 1.6 x 2.8 cm hyperechoic area in segment 4B of the liver, adjacent to the falciform ligament. GALLBLADDER: Post cholecystectomy status. COMMON BILE DUCT: No dilation. The common bile duct measures 6 mm. PANCREAS: The visualized pancreas appears within normal limits. The distal pancreas is obscured by bowel gas. RIGHT KIDNEY: Unremarkable. Normal renal contours. No renal mass or calculus. No hydronephrosis. Right kidney measures 9.3 x 3.7 x 3.9 cm. IMPRESSION: Post cholecystectomy status. A 2.6 x 1.6 x 2.8 cm hyperechoic area in segment 4B of the liver, adjacent to the falciform ligament, is likely a focal fatty deposition. Compared to the prior MRCP, there is an interval cholecystectomy status and persistent focal fatty infiltration in segment 4B of the liver. /[place]
[2024-12-05] MEDS ORDERED: PANT20TA PO (22:00)
[2024-12-05 22:04] VITALS: BP 129/71; PULSE 90; RESP 18; TEMP 98.2; O2SAT 98
== END 2024-12-05 22:23 | disposition home or self-care (01) ==
LOC: EDH 18:59
DX: K29.70 Gastritis, unspecified, without bleeding (principal); G89.18 Other acute postprocedural pain; R10.13 Epigastric pain; Z79.899 Other long term (current) drug therapy; Z90.49 Acquired absence of other specified parts of digestive tract; Z87.19 Personal history of other diseases of the digestive system
CPT/HCPCS: 99284; 76705; 80053; 83690; 85025; 81001; 81025; 36415; J7030

== ENCOUNTER 2024-12-08 21:33 | Emergency (ER) | payer SELFPAY ==
[~2024-12-08] VITALS: Ht 160 cm; Wt 58.5 kg
[~2024-12-08 21:33] MED LIST changes: +PANT20TA PO
[2024-12-08 21:50] LABS: ADD UA MICROSCOPIC YES; APPEARANCE,URINE CLEAR (CLEAR); GLUCOSE, URINE (UA) NEGATIVE (NEGATIVE); LEUKOCYTE ESTERASE ,URINE 25 Leu/uL (NEGATIVE); NITRATE,URINE NEGATIVE (NEGATIVE); OCCULT BLOOD,URINE NEGATIVE (NEGATIVE)
[2024-12-08 21:51] LABS: SQUAMOUS EPITHELIAL CELL,UR RARE /HPF (0-2)
--- NOTE | 2024-12-08 22:08 | ERN ---
ED Note History of Present Illness Stated Complaint: C/O EPIGASTRIC PAIN RADIATING TO BACK W/ NAUSEA Chief Complaint: Abdominal Pain Time Seen by MD: 21:54 Dictation: This is a 24-year-old female who presented to the emergency room complaining of epigastric pain radiating to the back associated with nausea 4 hours prior to the presentation. Patient stated that she had cholecystitis and cholelithiasis and underwent laparoscopic gallbladder surgery on 11/28/2024 uneventfully. Patient was discharged on 11/29 and has been making progress since then. She stated that she has had minor epigastric pains postop and has been doing fairly well however today pain was worse and hence she came in for evaluation she denied any vomitings no diarrhea but she reports burning sensation in her stomach epigastric area. She has been trying to eat less spicy food since her surgery. Temperature 98.6 pulse 93 respirations 20 blood pressure 136/76 with a pulse oximetry of 100% on room air Allergies: Coded Allergies: No Known Drug Allergies (Unverified Allergy, Unknown, 05/02/22) Home Meds Active Scripts Pantoprazole Sodium (Protonix) 40 Mg Tablet.dr, 1 TAB PO DAILY for 30 Days, #30 TAB 0 Refills Prov:MAYNOR AN MD 12/08/24 Pantoprazole Sodium (Protonix) 20 Mg Tablet.dr, 1 TAB PO DAILY for 10 Days, #10 TAB 0 Refills Prov:GAVIN HOOKS 12/05/24 Nitrofurantoin/Nitrofuran Mac (Macrobid) 100 Mg Cap, 1 CAP PO BID for 7 Days, #14 CAP 0 Refills Prov:SIMEON HICKS MD 11/29/24 Past Medical History Past Medical History: No Pertinent History Additional Past Medical Hx: GASTRITIS, GALLSTONES Surgical History: Cholecystectomy Family History: Negative LMP: Nov 20, 2024 : 2 Para: 1 Aborts: 0 RN Note Reviewed/Agreed w/PFSH: Yes Review of System Dictation Constitutional: Negative for fever,chills, and weight loss Eyes: Negative for injury, pain,redness, and discharge ENT: Negative for injury,pain or swelling Cardiovascular: Negative for chest pain, palpitations, and edema Respiratory: Negative for shortness of breath, cough, and wheezing, Abdomen/GI: Positive for epigastric abdominal pain, nausea, denied vomiting, diarrhea, and constipation Back: Negative for injury and pain : Negative for injury, bleeding and discharge MS/Extremity: Negative for injury and deformity Skin: Negative for rash, and discoloration Neuro: Negative for headache, weakness, numbness, tingling, and seizure Psych: Negative for suicide ideation, homicidal ideation, and hallucinations Initial Vital Sign VS Vital Signs Date Time Temp Pulse Resp B/P (MAP) Pulse Ox O2 Delivery O2 Flow Rate FiO2 12/08/24 21:34 98.6 93 20 136/76 100 Room Air 12/08/24 22:31 0 21 Physical Exam Dictation General: awake, alert, NAD Head/Face: Normocephalic, atraumatic Eyes: PERRL, EOMI, vision at baseline ENT: oral cavity clear, TMs clear, no signs of infection Neck: Trachea midline, supple, no nuchal rigidity Cardiovascular: RRR, normal S1/S2, No MRGs, no JVD Respiratory: CTAB, no respiratory distress, No rales or wheezes Abdomen: Soft, mild tender in the epigastrium, non-distended, normal bowel sounds, no guarding or rebound. Skin: Warm, dry, normal turgor, no rash MS/Extremity: Pulses equal, no cyanosis, neurovascular intact, FROM Neuro: COAx4, GCS 15, strength 5/5, CN 2-12 intact, normal cerebellar exam, normal gait, Psych: Normal behavior, mood, and affect normal Extremities-trace edema without any palpable cords, Homans sign is negative Results (Laboratory/Radiology) Laboratory/Radiology Laboratory Tests Test 12/08/24 21:41 12/08/24 22:48 Urine Color LIGHT-YELLOW (YELLOW) Urine Appearance CLEAR (CLEAR) Urine pH 6.5 (5.0-8.0) Urine Specific [place] 1.019 (1.001-1.031) Urine Protein NEGATIVE mg/dL (NEGATIVE) Urine Glucose (UA) NEGATIVE mg/dL (NEGATIVE) Urine Ketones 10 mg/dL (NEGATIVE) H Urine Occult Blood NEGATIVE (NEGATIVE) Urine Nitrate NEGATIVE (NEGATIVE) Urine Bilirubin NEGATIVE mg/dL (NEGATIVE) Urine Urobilinogen 0.2 mg/dL (0.2-1.0) Urine Leukocyte Esterase 25 [place]cedez/uL (NEGATIVE) H Urine RBC 2-5 /HPF (0-1) H Urine WBC 2-5 /HPF (0-1) H Urine Squamous Epithelial Cells RARE /HPF (0-2) Urine Bacteria None /HPF (None Seen) Urine HCG, Qualitative NEGATIVE (NEGATIVE) White Blood Count 7.0 K/uL (4.8-10.8) Red Blood Count 5.18 MIL/uL (4.00-5.50) Hemoglobin 13.9 g/dL (12.0-16.0) Hematocrit 43.4 % (36-48) Mean Corpuscular Volume 83.8 fL (79-99) Mean Corpuscular Hemoglobin 26.8 pg (27.0-33.0) L Mean Corpuscular Hemoglobin Concent 32.0 g/dL (32.0-36.0) Red Cell Distribution Width 14.3 % (11.0-15.5) Platelet Count 277 K/uL (130-400) Mean Platelet Volume 12.0 fL (7.5-10.5) H Immature Granulocyte % (Auto) 0.3 % (0-1) Neutrophils (%) (Auto) 77.2 % (40.0-77.0) H Lymphocytes (%) (Auto) 13.5 % (21.0-51.0) L Monocytes (%) (Auto) 7.5 % (3.0-13.0) Eosinophils (%) (Auto) 0.9 % (0.0-8.0) Basophils (%) (Auto) 0.6 % (0.0-5.0) Neutrophils # (Auto) 5.4 K/uL (1.8-7.7) Lymphocytes # (Auto) 1.0 K/uL (1.0-4.8) Monocytes # (Auto) 0.5 K/uL (0.1-1.0) Eosinophils # (Auto) 0.06 K/uL (0.00-0.70) Basophils # (Auto) 0.04 K/uL (0.00-0.20) Absolute Immature Granulocyte (auto 0.02 K/uL (0-1) Nucleated Red Blood Cells 0.0 % (0.0-0.19) Sodium Level 139 mmol/L (136-145) Potassium Level 3.8 mmol/L (3.5-5.1) Chloride Level 103 mmol/L (101-111) Carbon Dioxide Level 27 mmol/L (21-32) Blood Urea Nitrogen 9 mg/dL (7-18) Creatinine 0.6 mg/dL (0.5-1.0) Glomerular Filtration Rate Calc 128 mL/min (>90) Random Glucose 96 mg/dL (70-105) Total Calcium 9.1 mg/dL (8.5-10.1) Labs Reviewed?: Yes ED Course ED Course Orders Procedure Category Date Status Time Urinalysis Profile LAB 12/08/24 Complete 21:40 ,Urine Test LAB 12/08/24 Complete 21:40 Cbc With Differential LAB 12/08/24 Complete 22:06 Basic Metabolic Panel LAB 12/08/24 Complete 22:06 Ketorolac PHA 12/08/24 Complete Tromethamine 15mg/Ml 22:30 Lidocaine Hcl 2% PHA 12/08/24 Complete Viscous (Lidocaine Hcl 22:30 Mag/Alum/Simeth 30ml PHA 12/08/24 Complete (Maalox Plus 30ml) 22:30 Dicyclomine Hcl PHA 12/08/24 Complete (Bentyl 10mg/5ml 22:30 Current Medications Medications (Trade) Dose Ordered Sig/Nathan Route PRN Reason Start Time Stop Time Status Last Admin Dose Admin Al Hydroxide/Mg Hydroxide (MAALox PLUS 30ML) 30 ml ONCE ONCE PO 12/08/24 22:30 12/08/24 22:31 DC 12/08/24 22:42 Dicyclomine HCl (Bentyl 10mg/5ml Syrup) 10 mg ONCE ONCE PO 12/08/24 22:30 12/08/24 22:31 DC 12/08/24 22:42 Ketorolac Tromethamine (toRADol) 15 mg ONCE ONCE IM 12/08/24 22:30 12/08/24 22:31 DC 12/08/24 22:42 Lidocaine HCl (Lidocaine HCl 2% Viscous) 10 ml ONCE ONCE PO 12/08/24 22:30 12/08/24 22:31 DC 12/08/24 22:42 Vital Signs Date Time Temp Pulse Resp B/P (MAP) Pulse Ox O2 Delivery O2 Flow Rate FiO2 12/08/24 22:31 98.6 93 20 136/76 100 Room Air* 0 21 12/08/24 21:34 98.6 93 20 136/76 100 Room Air We will perform diagnostic labs, and administer medications according to the patient's complaint. Once the results are available, will review and personally interpreted the labs to rule out any acute life-threatening emergency the trach require immediate intervention and treatment. I will then re-evaluate the patient after treatment and diagnostic exams have return to determine whether the patient requires any further testing, can safely be discharged home or need further admission to hospital for additional treatment and evaluation Labs reviewed urinalysis is unremarkable. Urine test is negative. Trial of PPI and GI cocktail On re-evaluation patient admits to feeling significantly improved. I updated her on my thoughts in terms of possibly also gastritis esophagitis or perhaps even bile reflux since she had cholecystectomy. I recommended that she should continue PPI for at least a few weeks and if she still continues to have symptoms she would get a referral to GI for evaluation of H pylori infection.. Medical Decision Making MDM Differential diagnosis: Gastritis, gastroesophageal reflux disease, esophagitis, bile reflux, peptic ulcer disease Rationale: Tests considered and ordered secondary to shared decision making include: Previous outside records reviewed: Old ER visits. Risk of complication and/or morbidity or mortality of patient management: None Medications-Per medication reconciliation Need for hospitalization: Patient does not meet criteria for hospitalization. Need for emergency major/minor surgery: No There are no social concerns with this patient. Prescription drug management Prescriptions will include symptomatic care Patient's prior external medical records from other ER visits were reviewed by me as indicated. Prior testing and results from previous visits were reviewed. Prior tests were taken into account with medical decision making and resource utilization, independent historian/historians were used to obtain complete medical history. I independently interpreted the test that were performed, results were reviewed by me and considered findings on radiology if ordered. Medical management and examination interpretation discussions were had by me with other qualified healthcare professionals as indicated for the patient's care. Problem List Problem List: (1) Gastroesophageal reflux (2) Post-operative pain (3) Gastritis (4) Bile reflux esophagitis DX & DISP Disposition: Discharge Departure Impression: Primary Impression: Gastroesophageal reflux Additional Impressions: Bile reflux esophagitis, Abdominal pain, Gastritis Condition: Stable Scripts Pantoprazole Sodium (Protonix) 40 Mg Tablet. 1 TAB PO DAILY for 30 Days, #30 TAB 0 Refills Prov: MAYNOR AN MD 12/08/24 Additional Instructions: Patient and the caregiver have been informed of all the diagnostic tests and the imaging conducted during the today's visit to the emergency room and has verbalized understanding of the results I have personally reviewed and interpreted all diagnostic exams performed here in the ER today as well as the vital signs documented by the nursing staff. The patient is now being discharged to home and should follow up with the primary care physician or the specialist as directed by the ER staff. Follow-up with primary care provider in 1 to 2 days. Take medications as directed here in the emergency room. Okay to continue home medications unless otherwise discussed during your visit in the emergency room today. Return to your nearest emergency room if symptoms worsen or if there is no improvement. Call 911 if you need immediate assistance. Take Tylenol or Motrin over-the- counter as needed and if no contraindications are present. Increase oral hydration. A wound culture or urine culture was ordered here in the emergency room department please follow-up with primary care provider and advise them to get repeat ports from our facility. If you had any Mj wrap/splints that were applied here, please do not remove them until you see your primary care or specialty. Extensive counseling on GERD precautions done-avoiding greasy deep fried foods, caffeine. Avoid sleeping immediately after dinner but allow at least 1-2 hours for stomach emptying, elevate the head of the bed Referrals: SELF,REFERRAL (PCP) MAYNOR AN MD Dec 08, 2024 22:08
[2024-12-08 22:31] VITALS: BP 136/76; PULSE 93; RESP 20; TEMP 98.6; O2SAT 100
[2024-12-08] MEDS: LIDOCAINE HCL 2% VISCOUS 15 ML UDCUP PO ONE (22:42)
[2024-12-08] MEDS: MAG/ALUM/SIMETH 30 ML UDCUP PO ONE (22:42)
[2024-12-08] MEDS: DICYCLOMINE HCL 10 MG/5 ML ML PO ONE (22:42)
[2024-12-08 23:01] LABS: IMMATURE GRANULOCYTE ABSOLUTE 0.02 K/uL (0-1); NUCLEATED RED BLOOD CELLS 0.0 % (0.0-0.19); PLATELET COUNT (AUTO) 277 K/uL (130-400); RED BLOOD CELL COUNT(AUTO) 5.18 MIL/uL (4.00-5.50); RED CELL DISTRIBUTION WIDTH 14.3 % (11.0-15.5); WHITE BLOOD COUNT (AUTO) 7.0 K/uL (4.8-10.8)
[2024-12-08 23:08] LABS: CREATININE 0.6 mg/dL (0.5-1.0); GLOMERULAR FILTR. RATE CALC 128.0 mL/min (>90); GLUCOSE,RANDOM 96.0 mg/dL (70-105); SODIUM SERUM 139.0 mmol/L (136-145); UREA NITROGEN, BLOOD 9.0 mg/dL (7-18)
[2024-12-08] MEDS ORDERED: PANT40TA PO (23:16)
== END 2024-12-08 23:19 | disposition home or self-care (01) ==
LOC: EDH 21:33
DX: K21.00 Gastro-esophageal reflux disease with esophagitis, without bleeding (principal); K29.70 Gastritis, unspecified, without bleeding; Z79.899 Other long term (current) drug therapy; Z90.49 Acquired absence of other specified parts of digestive tract
CPT/HCPCS: 99284; 80048; 85025; 81001; 81025; 36415; 96372; J1885